=== PATIENT | male | born 1940 | race Caucasian/White ===

== ENCOUNTER 2019-02-15 02:48 | Observation (INO) ==
[2019-02-15] MEDS ORDERED: IOPAMIDOL 100 ML BOTTLE IV ONE (02:49)
[2019-02-15] MEDS ORDERED: LACTATED RINGERS 1,000 ML IV ONE (03:22)
[2019-02-15] MEDS ORDERED: ONDANSETRON 4 MG/2 ML VIAL IV ONE (03:22)
[2019-02-15] MEDS ORDERED: PANTOPRAZOLE 40 MG VIAL IV ONE ×2 (03:22→07:31)
--- NOTE | 2019-02-15 03:33 | Emergency Department Note ---
Abdominal Pain HPI - General Chief Complaint: Abdominal Pain Stated Complaint: abd pain Time Seen by Provider: 02/15/19 03:21 Source: patient Mode of arrival: ambulatory Limitations: no limitations - History of Present Illness HPI Narrative: Patient started belching yesterday evening. Then had 1 episode of emesis, thinks he vomited up some peaches that he had earlier in the evening. Proceeded to have more episodes of abdominal cramps and 1 further episode of emesis about 1:30 AM her. Decided to come in for evaluation of. states that he has a history of Crohn's and he said episodes like this before when his Crohn's was active. He did have 2 bowel movements earlier yesterday. Denies blood in his stools. He does take eliquis for a blood clot that he had in his leg. No fevers, no chills, no cough. No respiratory symptoms, status post open heart surgery. Denies chest pain. MD Complaint: abdominal pain Onset (ago): hour(s) Location: periumbilical Quality: cramping Radiation: none Migration to: no migration Improves with: nothing Associated symptoms: Reports: denies other symptoms, nausea, vomiting. Denies: diarrhea, fever, chills, constipation, dysuria - Related Data Home Medications Medication Instructions Recorded Confirmed Aspirin [Brady Chewable Aspirin] 81 mg PO DAILY 05/09/16 08/09/16 Atorvastatin [Lipitor] 10 mg PO HS 05/09/16 08/09/16 Citalopram [Celexa] 20 mg PO DAILY 05/09/16 08/09/16 Diltiazem HCl [Cartia Xt] 120 mg PO DAILY 05/09/16 08/09/16 Mesalamine [Pentasa] 2,000 mg PO BID 05/09/16 08/09/16 Methotrexate Sodium [Methotrexate] 25 mg IJ WEEKLY 05/09/16 08/09/16 Omeprazole [PriLOSEC] 20 mg PO DAILY 05/09/16 08/09/16 Primidone [Mysoline] 100 mg PO DAILY 05/09/16 08/09/16 coenzyme Q10 100 mg capsule 100 mg PO QDAY 07/04/16 08/09/16 cyanocobalamin (vitamin B-12) 100 100 mcg PO QDAY 07/04/16 08/09/16 mcg tablet folic acid 1 mg tablet 1 mg PO QDAY 07/04/16 08/09/16 grape seed extract PO QDAY 07/04/16 08/09/16 lisinopril 2.5 mg tablet 2.5 mg PO QDAY 07/04/16 08/09/16 nitroglycerin 0.4 mg sublingual 0.4 mg SUBLINGUAL Q5M PRN 07/04/16 08/09/16 tablet omega-3 fatty acids 1,000 mg 1,000 mg PO QDAY 07/04/16 08/09/16 capsule turmeric root extract PO QDAY 07/04/16 08/09/16 Apixaban [Eliquis] 5 mg PO BID 02/15/19 02/15/19 Allergies Allergy/AdvReac Type Severity Reaction Status Date / Time No Known Drug Allergies Allergy Verified 02/15/19 02:53 Review of Systems All systems ED: reviewed and negative except as stated. Constitutional: Denies: fever, chills ENT ED: Denies: ear pain, throat pain Cardiovascular: Denies: chest pain, palpitations, dyspnea on exertion Respiratory: Denies: shortness of breath, cough Gastrointestinal: Reports: abdominal pain Abdominal Pain PMH - Past Medical History Medical history: Reports: CAD (coronary artery disease), GERD, hyperlipidemia, hypertension, other (crohn's, history of Parkinson's) Surgical history ED: Reports: coronary bypass (CABG) Psychiatric history: Reports: no psych history Family history: Reports: no significant family history - Social History Smoking status: Never smoker Alcohol use: Reports: Rarely Drug use: Reports: none Physical Exam Limitations: no limitations General appearance: alert, in no apparent distress, nontoxic Head: atraumatic, normocephalic Eye: Present: normal appearance, PERRL, EOMI. Absent: conjunctival injection ENT: Present: normal exam, normal oropharynx, mucous membranes moist, TM's normal bilaterally Neck: Present: normal inspection, full ROM. Absent: tenderness, meningismus Chest: Present: normal inspection, symmetric chest wall rise Respiratory: Present: normal lung sounds bilaterally. Absent: respiratory distress, rales/crackles Cardiovascular: Present: regular rate, normal rhythm, normal heart sounds Abdominal: Present: soft, distention, tenderness, hyperactive bowel sounds. Absent: guarding, rebound, rigidity Abdominal tenderness: Present: RLQ, mild : Present: normal inspection, normal testicular lie. Absent: testicular tenderness, scrotal swelling Extremities: Present: normal inspection, full ROM. Absent: tenderness, pedal edema Back: Present: normal inspection. Absent: CVA tenderness (R), CVA tenderness (L), vertebral tenderness Neurological: Present: alert, oriented X3, CN II-XII intact, other (fine tremor of his hands). Absent: motor sensory deficit Psychiatric: Present: normal affect, normal mood Skin: Present: warm, dry, normal color Course - Reevaluation(s) Reevaluation #1: His x-rays of the abdomen are showing air-fluid levels, multiple, and along with his elevated white blood cell count and tenderness in the right lower quadrant. We will go ahead and proceed with CT scan of the abdomen and pelvis. Keep him nothing by mouth. His nausea is better at this time. He has not vomited here in the ED, but he may still very well need an NG tube. The. Sedimentation rate is not especially high, however, he is on methotrexate and he may still have a flareup of his Crohn's. Reevaluation #2: CT scan negative for appendicitis. The. Patient may have small degree of inflammation in the terminal ileum. Upright plain abdominal films concerning for bowel obstruction, however, CT not indicating that he has an acute obstr uction. At this point, we will proceed with NG-tube placement, , low-dose Solu- Medrol and keep him nothing by mouth. Initial orders written for Dr. Archiabld. The. Case discussed with Dr. Archibald Vital Signs Temperature 98.5 F 02/15/19 02:49 Pulse Rate 81 02/15/19 02:49 Respiratory Rate 20 02/15/19 02:49 Blood Pressure 156/77 02/15/19 02:49 Pulse Oximetry (%) 98 02/15/19 02:49 Temperature 98.0 F 02/15/19 04:47 Pulse Rate 82 02/15/19 07:12 Respiratory Rate 16 02/15/19 04:47 Blood Pressure 108/43 02/15/19 07:12 Pulse Oximetry (%) 91 02/15/19 07:12 Abdominal Pain - MDM Narrative Medical decision making narrative: Impression is right lower quadrant abdominal pain, history of Crohn's disease, air-fluid levels consistent with small bowel obstruction - Lab Data Lab results reviewed: Yes I reviewed the patient's lab results. Result diagrams: 02/15/19 03:30 02/15/19 03:30 Lab Results 02/15/19 02/15/19 02/15/19 Range/Units 03:30 03:30 04:45 WBC 13.3 H (4.50-11.00) K/mcL RBC 4.44 L (4.63-6.08) M/mcL Hgb 14.0 (13.7-17.5) g/dL Hct 42.9 (40.1-51.0) % MCV 96.6 (80.0-100.0) fL MCH 31.5 (26.0-34.0) pg MCHC 32.6 (31.0-36.0) g/dL RDW 15.2 H (11.5-14.5) % Plt Count 266 (140-440) K/mcL MPV 10.0 (7.4-10.4) fL Gran % 89.2 H (38.0-78.0) % Lymph % (Auto) 3.9 L (15.5-49.0) % [place] % (Auto) 6.5 (1.0-12.0) % Eos % (Auto) 0.2 (0.0-7.0) % Baso % (Auto) 0.2 (0.0-2.0) % Gran # 11.89 H (1.80-8.00) K/mcL Lymph # (Auto) 0.52 L (1.50-4.80) K/mcL [place] # (Auto) 0.86 (0.10-0.90) K/mcL Eos # (Auto) 0.03 (0.00-0.70) K/mcL Baso # (Auto) 0.03 (0.00-0.30) K/mcL ESR 22 H (0-15) mm/hr Sodium 138 (133-145) mmol/L Potassium 4.3 (3.3-5.1) mmol/L Chloride 100 (96-108) mmol/L Carbon Dioxide 23 (22-30) mmol/L Anion Gap 15.0 (8-16) BUN 16 (8-23) mg/dl Creatinine 1.3 H (0.7-1.2) mg/dl GFR Calculation 52 Glucose 130 H (70-105) mg/dL Calcium 9.6 (8.6-10.4) mg/dl Total Bilirubin 0.5 (0.0-1.0) mg/dL AST 22 (0-37) U/l ALT 25 (0-40) U/l Alkaline Phosphatase 78 (39-117) U/L Total Protein 7.5 (5.9-8.4) gm/dL Albumin 4.6 (3.2-5.2) gm/dL Globulin 2.9 (2.2-3.7) gm/dL Albumin/Globulin Ratio 1.6 (1.0-2.3) Lipase 15 (7-60) U/L Urine Color Yellow Urine Appearance Clear Urine pH 8.0 (5.0-9.0) Ur Specific [place] 1.019 (1.000-1.035) Urine Protein 30 A (NEG) mg/dL Urine Glucose (UA) Negative (NEG) mg/dL Urine Ketones Neg (NEG) mg/dL Urine Occult Blood Neg (<0.03) mg/dL Urine Nitrate Neg (NEG) Urine Bilirubin Neg (NEG) mg/dL Urine Urobilinogen Neg (NEG) mg/dL Ur Leukocyte Esterase Neg (NEG) /uL Urine RBC 18 H (0-1) /hpf Urine WBC 3 (0-4) /hpf Ur Squamous Epith Cells 0 (0-4) /hpf Urine Bacteria 0 (0) /hpf Urine Mucus Few (0) /hpf Ur Culture Indicated? No - Radiology Data Radiology results reviewed: Yes I reviewed the patient's radiology results. Disposition Pt seen by RESIDENT ADVISOR/PA only: No Clinical Impression: Abdominal pain, Small bowel obstruction, Crohn's disease Disposition: Xfer As Outpt/Obs ([facility]) Condition: Fair Referrals: Tiffanie Amado MD [Primary Care Provider] -
[2019-02-15 04:10] LABS: Basophils # (Auto) 0.03 K/mcL (0.00-0.30); Basophils % (Auto) 0.2 % (0.0-2.0); Eosinophils # (Auto) 0.03 K/mcL (0.00-0.70); Eosinophils % (Auto) 0.2 % (0.0-7.0); Granulocytes % (Auto) 89.2 % (38.0-78.0); Hematocrit 42.9 % (40.1-51.0); Lymphocytes # (Auto) 0.52 K/mcL (1.50-4.80); Lymphocytes % (Auto) 3.9 % (15.5-49.0); Mean Cell Volume 96.6 fL (80.0-100.0); Mean Corpuscular HGB Conc 32.6 g/dL (31.0-36.0); Monocytes # (Auto) 0.86 K/mcL (0.10-0.90); Monocytes % (Auto) 6.5 % (1.0-12.0); Platelet Count 266 K/mcL (140-440); RBC 4.44 M/mcL (4.63-6.08); Red Cell Distribution Width 15.2 % (11.5-14.5); WBC 13.3 K/mcL (4.50-11.00)
[2019-02-15 04:29] LABS: ALT/SGPT 25 U/l (0-40); AST/SGOT 22 U/l (0-37); Albumin 4.6 gm/dL (3.2-5.2); Albumin/Globulin Ratio 1.6 (1.0-2.3); Alkaline Phosphatase 78 U/L (39-117); Bilirubin,Total 0.5 mg/dL (0.0-1.0); Blood Urea Nitrogen 16 mg/dl (8-23); Calcium 9.6 mg/dl (8.6-10.4); Carbon Dioxide 23 mmol/L (22-30); Chloride 100 mmol/L (96-108); Globulin 2.9 gm/dL (2.2-3.7); Glomerular Filtration Rate 52; Glucose 130 mg/dL (70-105)
[2019-02-15 04:51] LABS: Erythrocyte Sedimentation Rate 22 mm/hr (0-15)
[2019-02-15] MEDS: LACTATED RINGERS 1,000 ML IV SCH ×2 (05:20→10:04)
[2019-02-15 05:27] LABS: Appearance,Urine CLEAR; Bacteria,Urine 0 /hpf (0); Bilirubin,Urine NEG (NEG); Color,Urine YELLOW; Culture Indicated,Urine NO; Glucose,Urine (UA) NEGATIVE (NEG); Ketones,Urine NEG (NEG); Leukocyte Esterase,Urine NEG /uL (NEG); Mucus,Urine FEW /hpf (0); Nitrate,Urine NEG (NEG); Protein,Urine 30 mg/dL (NEG); Specific Gravity,Urine 1.019 (1.000-1.035); Urine Blood NEG mg/dL (<0.03); Urine RBC 18 /hpf (0-1); Urine Squamous Epithelial Cell 0 /hpf (0-4); Urine WBC 3 /hpf (0-4); Urobilinogen,Urine NEG (NEG)
[2019-02-15] MEDS ORDERED: methylPREDNISolone SOD SUCC 125 MG/2 ML VIAL IV ONE (07:23)
[2019-02-15] MEDS ORDERED: ONDANSETRON 4 MG/2 ML VIAL IV PRN ×2 (07:28→13:23)
[2019-02-15] MEDS ORDERED: LIDOCAINE JEL 2% 1 TUBE 5GM TOPICAL ONE (07:51)
--- NOTE | 2019-02-15 08:53 | XRay Report ---
HISTORY: Vomiting FINDINGS: There are several air-fluid levels in borderline dilated small intestine in the mid abdomen. There Is also a small air-fluid level within a decompressed stomach and within a small hiatus hernia. Mass is identified. Patient has moderate arthritis in the right hip. There are multiple subchondral erosions in the femoral head. Above the left pubic bone there is a 1.5 cm dense calcification. This may be a bladder stone. There are multiple punctate calcifications in the prostate and multiple vascular calcifications throughout the abdomen and pelvis. A 7 mm calculus is present in the lower portion of the right kidney. Patient has multiple old compression fractures thoracic and lumbar spine. IMPRESSION: Nonspecific bowel pattern Right side kidney stone and bladder stone Interpreted and Authenticated by: Hipolito Clemente 02/15/19
--- NOTE | 2019-02-15 09:06 | Cat Scan Report ---
History: Right lower quadrant pain, Crohn's disease, air-fluid levels TECHNIQUE: The patient was imaged following intravenous but no oral contrast scanning during the portal venous phase from the diaphragm to the symphysis pubis. Delayed excretory phase images of the upper abdomen were acquired. Sagittal and coronal reformats were created. The radiation exposure was limited using dose reduction technology. FINDINGS: A small hiatus hernia is present. Densely calcified plaques are present in the coronary arteries. The heart size is normal. The liver is normal in size. There are few scattered cysts in both left and right lobes. No solid mass is present. Within the neck of the gallbladder there are numerous tiny gallstones. The gallbladder wall is not thickened or inflamed and the bile ducts are nondilated. Within the spleen there are two tiny low-attenuation1 structures measuring approximately 2 to 3 mm in size. The more anterior the to becomes isodense during the delayed phase and the second one remains hypodense. These may be a combination of small cysts and tiny hemangiomas. The overall size of the spleen is normal. The pancreas is normal without evidence of a mass or inflammation. The kidneys are normal in size and shape. There is a nonobstructing 4 x 8 mm calculus in a lower pole calyx of the right kidney. In the upper pole there is a 2 x 3 mm stone. In the left kidney there is a cortical cyst laterally in the upper third measuring 1.1 x 1.2 cm. No stone is present in the left kidney. No solid mass or hydronephrosis are present in either kidney. Layering posteriorly in the lumen of the bladder there is a dense 1 x 1.3 mm calculus. The bladder ellis not thickened or inflamed. Prostate is mildly enlarged. There are dense calcifications in the transitional zone. The right seminal vesicle is enlarged. The left side is normal. No discrete tumor is identified within the prostate. There is no periprosthetic mass or adenopathy. Moderate atherosclerotic disease is present throughout the abdomen and pelvis. The aorta is normal in caliber. There are multiple fluid filled borderline dilated loops of small intestine in the abdomen. There is a short segment of distal ileum in the right mid abdomen which has thickened ellis and and there are couple diverticula within this segment. There is low level stranding of the surrounding fat. There is a gradual transition in caliber of the small intestine at the level of the abnormal small bowel in the right mid abdomen. The terminal ileum is normal. The appendix is noninflamed. Normal amount stool is present in the colon. There is no evidence of diverticulitis. Patient has numerous compression fractures in the thoracic and lumbar spine. The most severe compression fracture is at L1. There are moderate compression fractures at T7 and T8 and mild compression fractures at L2, L3, L4 and IMPRESSION: Short segment of inflamed ileum in the right mid abdomen causing either low-grade bowel obstruction or ileus. This is probably due to active Crohn's disease. There is no evidence of perforation, fistula or abscess. Nonobstructing right side kidney stones and moderate size bladder stone Enlarged prostate and asymmetric enlargement of the right seminal vesicle. Correlation with the PSA level is recommended Interpreted and Authenticated by: Hipolito Clemente 02/15/19
--- NOTE | 2019-02-15 09:07 | XRay Report ---
HISTORY: Nasogastric tube insertion FINDINGS: Nasogastric tube has been inserted. The tip is in the antrum of stomach. The stomach is decompressed. There is contrast in both kidneys following the preceding CT scan. Thin bands of scar or discoid atelectasis in the left lung base. IMPRESSION: Well-positioned nasogastric tube in the stomach Interpreted and Authenticated by: Hipolito Clemente 02/15/19
[2019-02-15] MEDS: 0.9 % SODIUM CHLORIDE 1,000 ML IV SCH ×3 (09:47→20:13)
[2019-02-15] MEDS ORDERED: PROMETHAZINE 25 MG/ML VIAL IV PRN (13:21)
--- NOTE | 2019-02-15 13:27 | General Surg History&Physical ---
History of Present Illness Patient information: Note initiated : 02/15/19 at 1:26 pm Service Date, if different from initiated Date: [] Patient: Scooter Maria a 79 y/o M admitted on 02/15/19 for abd pain. Chief Complaint: [] HPI: Mr. Maria is a 79 year old M admitted with partial bowel obstruction. The patient has a history of Crohn's disease and intermittently has episodes of acute flare. He started having crampy abdominal pain last evening about 8 PM. This was acute in onset and was followed by 2 major episodes of nausea and vomiting of large volume liquid. He also noted increasing bloating. He had a small bowel movement on yesterday and has had this small amount of flatus. He has not had any blood in his bowels. He has crampy pain in the right lower quadrant. CT of abdomen and pelvis suggests short segment partial small bowel obstruction with dilated loops of bowel. Patient is admitted for nasogastric decompression and will have small bowel follow-through tomorrow. Review of Systems All systems PM: reviewed and no additional remarkable complaints except as stated (negative except as noted in history of present illness and below) - Constitutional frequent falls, malaise, weight gain - Gastrointestinal abdominal pain, belching, bloating, change in bowel habits, cramping, nausea, vomiting - Musculoskeletal abnormal gait, arthralgias, back pain - Neurological abnormal gait, disequilibrium, tremor(s), weakness Past History Past medical history: History of coronary artery disease status post coronary artery bypass graft 4 in 2014 History of Crohn's disease. Anxiety with depression. Peripheral neuropathy. Parkinson's disease Past surgical history: Coronary artery bypass graft 4 Past family history: Positive for lung cancer. Melanoma. Stroke Past social history: Never smoker. Denies alcohol use. Denies drug use Medications and Allergies Home Medications Medication Instructions Recorded Confirmed Type Aspirin [Brady Chewable Aspirin] 81 mg PO DAILY 05/09/16 02/15/19 History Citalopram [Celexa] 20 mg PO DAILY 05/09/16 02/15/19 History Diltiazem HCl [Cartia Xt] 120 mg PO DAILY 05/09/16 02/15/19 History Methotrexate Sodium [Methotrexate] 25 mg IJ WEEKLY 05/09/16 02/15/19 History Omeprazole [PriLOSEC] 20 mg PO DAILY 05/09/16 02/15/19 History Primidone [Mysoline] 50 mg PO BID 05/09/16 02/15/19 History coenzyme Q10 100 mg capsule 100 mg PO QDAY 07/04/16 02/15/19 History cyanocobalamin (vitamin B-12) 100 100 mcg PO QDAY 07/04/16 02/15/19 History mcg tablet folic acid 1 mg tablet 1 mg PO QDAY 07/04/16 02/15/19 History grape seed extract 1 tab PO QDAY 07/04/16 02/15/19 History nitroglycerin 0.4 mg sublingual 0.4 mg SUBLINGUAL Q5M PRN 07/04/16 02/15/19 History tablet omega-3 fatty acids 1,000 mg 1,000 mg PO QDAY 07/04/16 02/15/19 History capsule Apixaban [Eliquis] 5 mg PO BID 02/15/19 02/15/19 History Carbidopa/Levodopa 1 each PO TID 02/15/19 02/15/19 History [Carbidopa-Levodopa 25-100 Tab] Pramipexole [Mirapex] 0.125 mg PO TID 02/15/19 02/15/19 History traZODone HCL [Trazodone HCl] 50 mg PO HS 02/15/19 02/15/19 History Allergies Allergy/AdvReac Type Severity Reaction Status Date / Time No Known Drug Allergies Allergy Verified 02/15/19 02:53 Exam Temp Pulse Resp BP Pulse Ox 98.3 F 87 18 139/75 92 02/15/19 11:43 02/15/19 11:43 02/15/19 11:43 02/15/19 11:43 02/15/19 11:43 - General physical appearance well developed, well nourished, no distress - Eyes PERRL, normal ocular movement - ENT normal pinna, normal nares, normal mucosa, no hearing loss, no congestion - Head Head exam IM: Present: atraumatic, normal inspection, normocephalic - Neck no masses, no bruits, trachea midline, no lymphadenopathy, no venous distension - Cardiovascular Cardiovascular exam IM: Present: normal rate and rhythm, RRR, +S1, +S2. Absent: JVD, tachycardia - Respiratory normal expansion, normal respiratory effort, clear to auscultation - Abdomen Abdomen: Present: soft, non tender, bowel sounds, distended (mild distention; no tenderness noted; normal bowel sounds) Hernia: Present: none - Genitourinary Present: normal penis with no external lesions - Integumentary Present: no rash, no growths, no abnormal pigmentation - Neurologic Present: normal coordination, normal sensation, other (constant resting tremor which is exacerbated with activity) - Musculoskeletal Present: normal posture, other (unsteady gait due to Parkinson's disease) - Psychiatric Present: oriented to time, oriented to person, oriented to place, speech is normal, memory intact Assessment and Plan (1) Partial obstruction of small intestine Patient will have nasogastric decompression today. Small bowel follow-through will be performed in the morning. Further treatment will be based on the results of the small bowel follow Status: Acute (2) Crohns disease Solu-Medrol 62 mg IV every 12 hours Status: Chronic (3) Anxiety and depression Resume home medication when patient is able to take oral intake Status: Chronic (4) Coronary artery disease Clinically inactive and asymptomatic at this time Status: Chronic (5) Peripheral neuropathy Status: Chronic Comment: feet
[2019-02-15] MEDS: PANTOPRAZOLE 40 MG VIAL IV SCH (17:16)
[2019-02-15] MEDS ORDERED: ACETAMINOPHEN 1,000 MG/100 ML BOTTLE IV PRN (19:57)
[2019-02-15] MEDS: methylPREDNISolone SOD SUCC 125 MG/2 ML VIAL IV SCH (20:13)
[2019-02-16] MEDS: 0.9 % SODIUM CHLORIDE 1,000 ML IV SCH ×4 (05:49→19:14)
[2019-02-16] MEDS: PANTOPRAZOLE 40 MG VIAL IV SCH ×2 (07:23→17:21)
[2019-02-16] MEDS: methylPREDNISolone SOD SUCC 125 MG/2 ML VIAL IV SCH ×2 (09:00→20:31)
--- NOTE | 2019-02-16 10:23 | XRay Report ---
HISTORY: Small bowel obstruction FINDINGS: The purchasing manager film of the abdomen shows normal caliber large and small intestine. The dilatation of small intestine seen on 02/15/19 has resolved. The patient was given dilute Gastrografin contrast through the nasogastric tube. Serial images were acquired following the barium through the stomach and small intestine into the colon. The barium reached the ascending colon within 30 minutes. The duodenum, jejunum and ileum have normal motility and a normal mucosal pattern. There is no evidence of obstruction or mass or inflammation. The questionable narrowed segment of ileum in the right side of the pelvis seen on the recent CT scan is not identified on today's study. The terminal ileum is normal. IMPRESSION: Normal exam Interpreted and Authenticated by: Hipolito Clemente 02/16/19
--- NOTE | 2019-02-16 13:51 | General Surgery Progress Note ---
Subjective Patient reports: feels better, pain is less, flatus, bowel movement, diarrhea, afebrile Narrative: Note initiated : 02/16/19 at 1:49 pm Service Date, if different from initiated Date: [] Patient: Scooter Maria 79 y/o M admitted on 02/15/19 for abd pain. Chief Complaint: [Patient feels much better. He had a small bowel follow- through this morning which showed transit to the colon in 30 minutes. He's had 2 large bowel movements since that time. He denies nausea and his pain has resolved.] Objective Temp Pulse Resp BP Pulse Ox 97.5 F 82 18 124/67 93 02/16/19 08:00 02/16/19 08:00 02/16/19 08:00 02/16/19 08:00 02/16/19 08:00 - Additional Data Intake & Output - Last 24 hours: Intake & Output 02/14/19 02/15/19 02/16/19 02/17/19 05:59 05:59 05:59 05:59 Intake Total 1000 2160 1000 Output Total 2040 975 Balance 1000 120 25 Weight 185 lb 185 lb 11.2 oz - General physical appearance well developed, well nourished, no distress - Eyes PERRL, normal ocular movement - ENT normal pinna, normal nares, normal mucosa, no hearing loss, no congestion - Neck no masses, no bruits, trachea midline, no lymphadenopathy, no venous distension - Respiratory normal expansion, normal respiratory effort, clear to auscultation - Cardiovascular Cardiovascular exam: Present: normal rate and rhythm, RRR, +S1, +S2. Absent: JVD, tachycardia - Abdomen soft, non tender, distended (abdomen is soft and nondistended; he has good active bowel sounds) - Integumentary no rash, no growths, no abnormal pigmentation - Neurologic normal coordination, normal sensation - Musculoskeletal normal gait, normal posture - Psychiatric oriented to time, oriented to person, oriented to place, speech is normal, memory intact - Labs 02/15/19 03:30 02/15/19 03:30 Assessment and Plan (1) Partial obstruction of small intestine Status: Acute Assessment and plan: Discontinue nasogastric tube. Full liquid diet. 2 view abdominal x-rays in the morning Current Visit: Yes (2) Crohns disease Status: Chronic Current Visit: Yes (3) Anxiety and depression Status: Chronic Current Visit: No (4) Coronary artery disease Status: Chronic Current Visit: No (5) Peripheral neuropathy Problem details: feet Status: Chronic Current Visit: No - Time Spent With Patient Total time spent is greater than 50% in coordination of care (as documented) at patient's floor/unit and/or counseling patient:
[2019-02-16] MEDS: PRAMIPEXOLE 0.25 MG TABLET PO SCH ×2 (15:11→20:31)
[2019-02-16] MEDS: CARBIDOPA/LEVODOPA 25/100 TABLET PO SCH ×2 (15:12→20:31)
[2019-02-16] MEDS: PRIMIDONE 50 MG TABLET PO SCH (20:31)
[2019-02-16] MEDS: APIXABAN 5 MG TABLET PO SCH (20:31)
[2019-02-16] MEDS ORDERED: traZODone HCL 50 MG TABLET PO SCH (21:00)
[2019-02-17] MEDS: 0.9 % SODIUM CHLORIDE 1,000 ML IV SCH ×3 (00:15→10:08)
[2019-02-17] MEDS: PANTOPRAZOLE 40 MG VIAL IV SCH (06:48)
--- NOTE | 2019-02-17 08:49 | XRay Report ---
CLINICAL INFORMATION: Small bowel obstruction - follow up COMPARISON: Small bowel follow-through: 02/16/2019. FINDINGS: The stool gas pattern is unremarkable. Small amount of residual barium is seen within the colon from small bowel follow-through exam one day prior. There is no free air, soft tissue mass, organomegaly or pathologic calcification. Patchy irregular sclerosis and cyst formation in the right femoral head may represent old AVN or atypical degeneration. It demonstrates long-term radiographic stability (unchanged from 03/01/2009 supine abdomen plain film. IMPRESSION: Normal abdomen Interpreted and Authenticated by: Maxwell Mckeon 02/17/19
[2019-02-17] MEDS ORDERED: CITALOPRAM 20 MG TABLET PO SCH (09:00)
[2019-02-17] MEDS ORDERED: DILTIAZEM 120 MG CAP.XL.24H PO SCH (09:00)
[2019-02-17] MEDS: PRAMIPEXOLE 0.25 MG TABLET PO SCH (09:06)
[2019-02-17] MEDS: methylPREDNISolone SOD SUCC 125 MG/2 ML VIAL IV SCH (09:07)
[2019-02-17] MEDS: APIXABAN 5 MG TABLET PO SCH (09:07)
[2019-02-17] MEDS: PRIMIDONE 50 MG TABLET PO SCH (09:07)
[2019-02-17] MEDS: CARBIDOPA/LEVODOPA 25/100 TABLET PO SCH (09:44)
--- NOTE | 2019-02-17 13:19 | Discharge Summary ---
Providers - Providers Patient information: Note initiated : 02/17/19 at 1:16 pm Service Date, if different from initiated Date: [] Patient: Scooter Maria 79 y/o M admitted on 02/15/19 for abd pain. Chief Complaint: [] Date of admission: 02/15/19 Discharge date: 02/17/19 Attending physician: José Miguel Archibald Hospitalization Hospital Course: 79-year-old male admitted with history of crampy abdominal pain, nausea and vomiting. He had clinical evidence of small bowel obstruction. He carries a diagnosis of Crohn's disease and has had intermittent flareup. CT of the abdomen suggested short segment stenosis of the terminal ileum with inflammation compatible with ileitis. The patient was admitted and started on decompression. A small bowel follow-through was done. He was given IV Solu- Medrol. Small bowel follow-through showed transit through the small bowel and colon. Patient has had 6 bowel movements since yesterday. Abdominal x-rays this morning is totally normal without any dilated bowel. He has tolerated full liquids and is stable for discharge home. He is advised to follow-up with his GI physician and his primary care physician. He is to resume all of his home medications. Discharge diagnosis: partial small bowel obstruction Secondary discharge diagnosis: History of Crohn's disease. Coronary artery disease, stable. Anxiety with depression, stable. Parkinson's disease, stable Reason for admission: abdominal pain, nausea and vomiting Procedures: None Pertinent studies/significant findings: CT of abdomen and pelvis with contrast Single contrast small bowel follow Complications: None Exam Temp Pulse Resp BP Pulse Ox 97.5 F 67 18 106/58 93 02/17/19 06:43 02/17/19 06:43 02/17/19 08:00 02/17/19 06:43 02/17/19 06:43 - General physical appearance well developed, well nourished, no distress - Eyes PERRL, normal ocular movement - ENT normal pinna, normal nares, normal mucosa, no hearing loss, no congestion - Head Head exam IM: Present: atraumatic, normocephalic - Neck no masses, no bruits, trachea midline, no lymphadenopathy, no venous distension - Cardiovascular Cardiovascular exam IM: Present: normal rate and rhythm - Respiratory normal expansion, normal respiratory effort, clear to auscultation - Abdomen Abdomen: Present: soft, non tender, bowel sounds, distended (benign abdomen without distention; no tenderness or guarding; good active bowel sounds) Hernia: Present: none - Genitourinary Present: normal penis with no external lesions - Integumentary Present: no rash, no growths, no abnormal pigmentation - Neurologic Present: normal coordination, normal sensation, other (resting and intention t remor compatible with his Parkinson's disease) - Musculoskeletal Present: normal gait, normal posture - Psychiatric Present: oriented to time, oriented to person, oriented to place, speech is normal, memory intact Discharge Plan - Patient/Caregiver Discharge Instructions Activity: increase activity as tolerated Diet: Full Liquid (full liquid diet and advance as tolerated) Additional Instructions: Continue his pre-hospitalization medications. Follow-up with Dr. KARINA Amado and his product line manager as needed - Follow up Plan Follow up with: Karina Amado MD [Primary Care Provider] - Disposition: Home, Self-Care Prognosis: Good Rehab Potential: Good I certify that the patient requires SNF services.: No Overall status at discharge: patient is back to baseline Pending Studies Resuscitation Status Full Code Diet Full Liquid Diet Start Sun Feb 16 1345 Apixaban (Eliquis) 5 mg PO BID [facility] Last Admin: 02/17/19 09:07 Dose: 5 mg Documented by: JOSE ALFREDO Admin: 02/16/19 20:31 Dose: 5 mg Documented by: DAI Carbidopa/Levodopa (Sinemet 25/100) 1 tab PO TID [facility] Last Admin: 02/17/19 09:44 Dose: 1 tab Documented by: JOSE ALFREDO Admin: 02/16/19 20:31 Dose: 1 tab Documented by: Admin: 02/16/19 15:12 Dose: 1 tab Documented by: [email or web address] Citalopram Hydrobromide (Celexa) 20 mg PO DAILY [facility] Last Admin: 02/17/19 09:07 Dose: 20 mg Documented by: JOSE ALFREDO Diltiazem HCl (Cardizem Cd) 120 mg PO DAILY [facility] Last Admin: 02/17/19 09:07 Dose: 120 mg Documented by: JOSE ALFREDO Sodium Chloride (Sodium Chloride 0.9%) 1,000 mls @ 100 mls/hr IV .Q10H [facility] Last Admin: 02/17/19 10:08 Dose: Not Given Documented by: JOSE ALFREDO Admin: 02/17/19 05:25 Dose: 100 mls/hr Documented by: Infusion: 02/17/19 05:14 Dose: 100 mls/hr Documented by: Admin: 02/17/19 00:15 Dose: Not Given Documented by: Admin: 02/16/19 19:14 Dose: 100 mls/hr Documented by: Infusion: 02/16/19 17:23 Dose: 100 mls/hr Documented by: Admin: 02/16/19 13:30 Dose: Not Given Documented by: Admin: 02/16/19 07:23 Dose: 100 mls/hr Documented by: Infusion: 02/16/19 06:13 Dose: 100 mls/hr Documented by: Admin: 02/16/19 05:49 Dose: Not Given Documented by: Admin: 02/15/19 20:13 Dose: 100 mls/hr Documented by: Infusion: 02/15/19 19:47 Dose: 100 mls/hr Documented by: Admin: 02/15/19 18:41 Dose: Not Given Documented by: [email or web address] Admin: 02/15/19 09:47 Dose: 100 mls/hr Documented by: [email or web address] Acetaminophen (Ofirmev) 1,000 mg in 100 mls @ 200 mls/hr IV Q6HP PRN; Protocol PRN Reason: Pain Last Infusion: 02/15/19 21:06 Dose: 0 mls/hr Documented by: Admin: 02/15/19 20:13 Dose: 200 mls/hr Documented by: DAI Methylprednisolone Sodium Succinate (Solu-Medrol) 62.5 mg IV Q12 [facility] Last Admin: 02/17/19 09:07 Dose: 62.5 mg Documented by: JOSE ALFREDO Admin: 02/16/19 20:31 Dose: 62.5 mg Documented by: Admin: 02/16/19 09:00 Dose: 62.5 mg Documented by: Admin: 02/15/19 20:13 Dose: 62.5 mg Documented by: DAI Pantoprazole Sodium (Protonix) 40 mg IV BIDAC [facility] Last Admin: 02/17/19 06:48 Dose: 40 mg Documented by: JOSE ALFREDO Admin: 02/16/19 17:21 Dose: 40 mg Documented by: [id number] Admin: 02/16/19 07:23 Dose: 40 mg Documented by: [email or web address] Admin: 02/15/19 17:16 Dose: 40 mg Documented by: [email or web address] Pramipexole Dihydrochloride (Mirapex) 0.125 mg PO TID [facility] Last Admin: 02/17/19 09:06 Dose: 0.125 mg Documented by: JOSE ALFREDO Admin: 02/16/19 20:31 Dose: 0.125 mg Documented by: Admin: 02/16/19 15:11 Dose: 0.125 mg Documented by: [email or web address] Primidone (Mysoline) 50 mg PO BID [facility] Last Admin: 02/17/19 09:07 Dose: 50 mg Documented by: JOSE ALFREDO Admin: 02/16/19 20:31 Dose: 50 mg Documented by: DAI Trazodone HCl (Desyrel) 50 mg PO HS [facility] Last Admin: 02/16/19 20:31 Dose: 50 mg Documented by: DAI Shift Summary 02/17/19 03:47 Shift Summary by Jackie Ruth A&O x4, calm and cooperative with cares. Has slept/rested for majority of shift. Up with SBA - hx of parkinsons so shaky/tremors but steady on feet - just needs minimal help managing lines. 20G IV in RAC infusing NS at 100ml/hr. No complaints of pain. Voiding per urinal. 2 BMs this shift - loose. No complaints of nausea/vomiting - tolerating full liquid diet well. VSS on RA. Receiving scheduled solu-medrol. No PRN medication given. Plan is to D/C home today. Will update at bedside. Initialized on 02/17/19 03:47 - END OF NOTE
== END 2019-02-17 14:09 | disposition home or self-care (01) ==
LOC: MEDSUR 02:48 → ED 02:48 → MEDSUR 08:40
PROVIDERS: ADMIT Family Medicine Adult Medicine; ATTEND Family Medicine Adult Medicine

== ENCOUNTER 2019-11-27 14:47 | Inpatient (IN) ==
[2019-11-27] MEDS ORDERED: ONDANSETRON 4 MG/2 ML VIAL IV ONE ×2 (15:16→16:46)
[2019-11-27] MEDS ORDERED: 0.9 % SODIUM CHLORIDE 1,000 ML IV ONE (15:16)
--- NOTE | 2019-11-27 15:25 | Emergency Department Note ---
Nausea/Vomiting/Diarrhea HPI General Chief complaint: Nausea/Vomiting/Diarrhea Stated complaint: Nausea and vomiting Time Seen by Provider: 11/27/19 15:09 Source: patient Mode of arrival: ambulatory Limitations: no limitations History of Present Illness HPI Narrative: Narrative: 79-year-old male patient presents to the emergency department with chief complaint of sudden onset nausea and vomiting. Patient tells me the symptoms started around 0200 this morning. He denies ingesting any foul or suspicious foods prior to symptom onset. In fact, his who accompanies him today, mentions that "we ate the same things". Patient admits to vomiting too numerous to count. Patient does have a history of small bowel obstruction in the past. He does complain of mild abdominal aching. He denies diarrhea or constipation. He denies hematemesis, hematochezia, or hematuria. He denies any known exposure to the coronavirus. ROS: Denies systemic illness, fever, sweats, chills. Denies headaches, tinnitus, or vision changes. Admits to mild runny nose. Denies sinus congestion or cough. Denies shortness of breath. Denies retrosternal chest pain or palpitations. Denies abdominal pain, nausea, vomiting, or diarrhea. Denies dysuria, urinary frequency, or urinary urgency. Admits to generalized weakness and tremor associated with his Parkinson's. Related Data Home Medications Medication Instructions Recorded Confirmed aspirin 81 mg PO DAILY 05/09/16 11/27/19 citalopram 20 mg PO DAILY 05/09/16 11/27/19 diltiazem HCl 120 mg PO DAILY 05/09/16 11/27/19 methotrexate sodium 25 mg IJ WEEKLY 05/09/16 11/27/19 omeprazole 20 mg PO DAILY 05/09/16 11/27/19 primidone 50 mg PO BID 05/09/16 11/27/19 coenzyme Q10 100 mg capsule 100 mg PO QDAY 07/04/16 11/27/19 cyanocobalamin (vitamin B-12) 100 100 mcg PO QDAY 07/04/16 11/27/19 mcg tablet folic acid 1 mg tablet 1 mg PO QDAY 07/04/16 11/27/19 grape seed extract 1 tab PO QDAY 07/04/16 11/27/19 nitroglycerin 0.4 mg sublingual 0.4 mg SUBLINGUAL Q5M PRN 07/04/16 11/27/19 tablet omega-3 fatty acids 1,000 mg 1,000 mg PO QDAY 07/04/16 11/27/19 capsule apixaban 5 mg PO BID 02/15/19 11/27/19 carbidopa-levodopa 1 each PO TID 02/15/19 11/27/19 pramipexole 0.125 mg PO TID 02/15/19 11/27/19 trazodone 50 mg PO HS 02/15/19 11/27/19 Allergies Allergy/AdvReac Type Severity Reaction Status Date / Time No Known Drug Allergies Allergy Verified 02/15/19 02:53 Review of Systems ROS ROS Narrative: Narrative: All systems ED: reviewed and negative except as stated. PFS Narrative Patient History Narrative: Narrative: Medical/Surgical/Family History All Active Problems (Updated 11/27/19 @ 18:10 by Alex Pizano PA-C) Parkinsons disease (Acute) Thoracic back pain (Acute) Strain of lumbar region (Acute) Groin strain (Acute) Abdominal pain (Acute) Small bowel obstruction (Acute) Partial obstruction of small intestine (Acute) Cold intolerance (Chronic) Intention tremor (Chronic) Peripheral neuropathy (Chronic) Insomnia, unspecified (Chronic) Anxiety and depression (Chronic) Fasting hyperglycemia (Chronic) Hypercholesterolemia (Chronic) Coronary artery disease (Chronic) Crohns disease (Chronic) Urinary frequency (Chronic) Hematuria (Chronic) Dyspnea (Acute) Fall (on)(from) incline, initial encounter (Acute) Abrasion (Acute) Medical History (Updated 11/27/19 @ 18:10 by Alex Pizano PA-C) Abrasion (Acute) Anxiety and depression (Chronic) Cold intolerance (Chronic) Coronary artery disease (Chronic) Crohns disease (Chronic) Dyspnea (Acute) Fall (on)(from) incline, initial encounter (Acute) Fasting hyperglycemia (Chronic) Hematuria (Chronic) Hypercholesterolemia (Chronic) Insomnia, unspecified (Chronic) Intention tremor (Chronic) Parkinsons disease (Acute) Peripheral neuropathy (Chronic) feet Urinary frequency (Chronic) Surgical History History of coronary artery bypass graft (Chronic) Family History Mother Cancer Father Lung cancer Brother Stroke Sister Melanoma Other Kidney stone Social History Smoking Status: Never smoker Alcohol Intake Frequency: does not drink Substance Use: does not use Exam Narrative Narrative: Narrative: General Limitations: no limitations General appearance: Present other (Well-developed, well-nourished, 79-year-old male patient laying semirecumbent on the emergency room gurney appears to not feel well. He is in no acute respiratory distress. He is afebrile with normal vital signs.) Head Head: Present normocephalic Eye Eye: Present normal appearance, PERRL and EOMI; Absent scleral icterus and conjunctival injection ENT ENT: Present normal oropharynx and mucous membranes moist Neck Neck: Present trachea midline; Absent lymphadenopathy and thyromegaly Chest Chest: Present symmetric chest wall rise Respiratory Respiratory: Present normal lung sounds bilaterally; Absent respiratory distress, wheezes, stridor, accessory muscle use and prolonged expiratory phase Cardiovascular Cardiovascular: Present regular rate and normal rhythm; Absent systolic murmur and diastolic murmur Adbominal Abdominal: Present soft and tenderness; Absent distention, guarding, rebound, rigidity, organomegaly and mass Expanded Abdominal Abdominal Tenderness: Present diffuse and mild Extremities Extremities: Present normal inspection, full ROM and normal capillary refill; Absent pedal edema Neurological Neurological: Present alert and oriented X3 Psychiatric Psychiatric: Present normal affect and normal mood Skin Skin: Present warm (WNL), dry and normal color Course Course Course Narrative: Differential diagnosis of nausea and vomiting in the adult patient includes the following: Acute gastroenteritis, vestibular neuritis, gastroparesis, GERD, cyclic vomiting syndrome, gastric outlet obstruction, eosinophilic gastroenteritis, and chronic idiopathic intestinal pseudoob struction. Patient does have mild pain on abdominal exam. This, coupled with a history of small bowel obstruction, warrants further investigation. I am going to order a 2 view abdominal x-ray series looking for evidence of obstruction. We will treat the patient's nausea with 4 mg of Zofran IVP. I will provide him normal saline 1000 mL as a bolus. Reevaluation(s) Reevaluation #1: Review the patient's diagnostics show the following: CBC WBC 12.8, all others within normal limits. CMP CO2 21, glucose 120, all others in normal limits. Lactic acid pending. Urinalysis pending. Abdominal x-ray series showing a mildly dilated gas-filled small bowel with the appearance consistent with recurrent small bowel obstruction. There is also 17 mm bladder stone noted. After reviewing all the data I discussed these findings the patient. He has recurrent small bowel obstruction. With this in mind, I reached out to our general surgeon (Dr. Archibald) and discussed the case with him. Time: 17:32 Reevaluation #2: At this time Dr. Archibald reviewed the patient's radiographs and then requested NG tube be placed and the patient. He did mention the patient n eeds admission and requested I put some holding orders in for the patient. He recommended IV fluids and something for nausea. He said he would follow patient closely tomorrow morning. Knowing this, I discussed the treatment plan with the patient who verbalized understanding. Patient is going to be admitted to our facility under the care of . I will place holding orders as mentioned. All further treatment decisions, modalities, and ultimate patient disposition be carried out by . Vital Signs Vital signs: Vital Signs Temperature 99 F 11/27/19 14:49 Pulse Rate 84 11/27/19 14:49 Respiratory Rate 12 11/27/19 14:49 Blood Pressure 155/69 11/27/19 14:49 Pulse Oximetry (%) 98 11/27/19 14:49 Temperature 99 F 11/27/19 14:49 Pulse Rate 87 11/27/19 19:01 Respiratory Rate 12 11/27/19 14:49 Blood Pressure 131/67 11/27/19 19:01 Pulse Oximetry (%) 95 11/27/19 19:01 [facility] MDM Narrative Medical decision making narrative: Narrative: Lab Data Result diagrams: 11/27/19 16:01 11/27/19 16:01 Labs: Lab Results 11/27/19 11/27/19 11/27/19 Range/Units 16:01 16:01 16:23 WBC 12.8 H (4.5-11.0) K/mcL RBC 4.70 (4.50-5.90) M/mcL Hgb 14.6 (13.5-16.5) g/dL Hct 44.3 (41.0-55.0) % MCV 94.3 (80.0-100.0) fL MCH 31.1 (26.0-34.0) pg MCHC 33.0 (31.0-36.0) g/dL RDW 14.5 (11.5-14.5) % Plt Count 220 (140-440) K/mcL MPV 9.9 (7.4-10.4) fL Neut % (Auto) 89.3 H (38.0-78.0) % Lymph % (Auto) 5.4 L (15.0-49.0) % [place] % (Auto) 5.2 (1.0-12.0) % Eos % (Auto) 0 (0.0-7.0) % Baso % (Auto) 0.1 (0.0-2.0) % Lymph # (Auto) 0.69 L (1.50-4.80) K/mcL [place] # (Auto) 0.67 (0.10-0.90) K/mcL Eos # (Auto) 0 (0.00-0.70) K/mcL Baso # (Auto) 0.01 (0.00-0.20) K/mcL Absolute Neutrophils 11.46 H (1.80-8.00) K/mcL VBG Lactic Acid 1.8 (0.5-2.0) mmol/L Sodium 141 (133-145) mmol/L Potassium 4.1 (3.3-5.1) mmol/L Chloride 104 (96-108) mmol/L Carbon Dioxide 21 L (22-30) mmol/L Anion Gap 16.0 (8.0-16.0) BUN 15 (8-23) mg/dL Creatinine 1.1 (0.7-1.2) mg/dL GFR Calculation 64 Glucose 120 H (70-105) mg/dL Calcium 9.4 (8.6-10.4) mg/dL Total Bilirubin 0.6 (0.1-1.0) mg/dL AST 21 (<40) U/L ALT 20 (<40) U/L Alkaline Phosphatase 82 (39-117) U/L Total Protein 7.1 (5.9-8.4) gm/dL Albumin 4.3 (3.2-5.2) gm/dL Globulin 2.8 (2.2-3.7) gm/dL Albumin/Globulin Ratio 1.5 (1.0-2.3) Urine Color Urine Appearance (Clear) Urine pH (5.0-9.0) Ur Specific [place] (1.000-1.035) Urine Protein (Negative) mg/dL Urine Glucose (UA) (Negative) mg/dL Urine Ketones (Negative) mg/dL Urine Occult Blood (Negative) mg/dL Urine Nitrate (Negative) Urine Bilirubin (Negative) mg/dL Urine Urobilinogen mg/dL Ur Leukocyte Esterase (Negative) /ug Urine RBC (0-1) /hpf Urine WBC (0-4) /hpf Ur Squamous Epith Cells (0-4) /hpf Urine Bacteria (0) /hpf Urine Mucus (None) /hpf Ur Culture Indicated? 11/27/19 Range/Units 16:57 WBC (4.5-11.0) K/mcL RBC (4.50-5.90) M/mcL Hgb (13.5-16.5) g/dL Hct (41.0-55.0) % MCV (80.0-100.0) fL MCH (26.0-34.0) pg MCHC (31.0-36.0) g/dL RDW (11.5-14.5) % Plt Count (140-440) K/mcL MPV (7.4-10.4) fL Neut % (Auto) (38.0-78.0) % Lymph % (Auto) (15.0-49.0) % [place] % (Auto) (1.0-12.0) % Eos % (Auto) (0.0-7.0) % Baso % (Auto) (0.0-2.0) % Lymph # (Auto) (1.50-4.80) K/mcL [place] # (Auto) (0.10-0.90) K/mcL Eos # (Auto) (0.00-0.70) K/mcL Baso # (Auto) (0.00-0.20) K/mcL Absolute Neutrophils (1.80-8.00) K/mcL VBG Lactic Acid (0.5-2.0) mmol/L Sodium (133-145) mmol/L Potassium (3.3-5.1) mmol/L Chloride (96-108) mmol/L Carbon Dioxide (22-30) mmol/L Anion Gap (8.0-16.0) BUN (8-23) mg/dL Creatinine (0.7-1.2) mg/dL GFR Calculation Glucose (70-105) mg/dL Calcium (8.6-10.4) mg/dL Total Bilirubin (0.1-1.0) mg/dL AST (<40) U/L ALT (<40) U/L Alkaline Phosphatase (39-117) U/L Total Protein (5.9-8.4) gm/dL Albumin (3.2-5.2) gm/dL Globulin (2.2-3.7) gm/dL Albumin/Globulin Ratio (1.0-2.3) Urine Color Yellow Urine Appearance Clear (Clear) Urine pH 7.0 (5.0-9.0) Ur Specific [place] 1.021 (1.000-1.035) Urine Protein 30 A (Negative) mg/dL Urine Glucose (UA) Negative (Negative) mg/dL Urine Ketones 5 A (Negative) mg/dL Urine Occult Blood Negative (Negative) mg/dL Urine Nitrate Negative (Negative) Urine Bilirubin Negative (Negative) mg/dL Urine Urobilinogen Negative mg/dL Ur Leukocyte Esterase Negative (Negative) /ug Urine RBC 0 (0-1) /hpf Urine WBC 1 (0-4) /hpf Ur Squamous Epith Cells 0 (0-4) /hpf Urine Bacteria None (0) /hpf Urine Mucus Mod A (None) /hpf Ur Culture Indicated? No Radiology Data Radiology results reviewed: Yes I reviewed the patient's radiology results. Radiology results narrative: Ordering Physician: Alex Pizano PA-C Date of Service: 11/27/19 Procedure(s): XR abdomen 2V Accession Number(s): [id number] INDICATION: N/V, moderate Abd pain. Hx of SBO. TECHNIQUE: Supine and upright abdomen. COMPARISON: Previous plain film examinations dated 02/17/2019, 02/16/2019, 02/15/2019. Previous CT scan dated 02/15/2019 FINDINGS:Abnormal bowel gas pattern. There is mildly prominent gas-filled small bowel with air-fluid levels. Small bowel measures approximately 3.5 cm in maximum cross-sectional diameter. No pneumoperitoneum. No biliary or portal venous gas. No pneumatosis. There is a 17 mm calcification in the pelvis. This was present previously although its orientation has changed. This is consistent with a bladder stone bladder stone. IMPRESSION: 1. Mildly dilated gas-filled small bowel. Appearance consistent with recurrent small bowel obstruction 2. 17 mm bladder stone Interpreted and Authenticated by: Maxwell Chavis 11/27/19 Discharge Plan Patient/Caregiver Discharge Instructions Pt seen by STRADDLE BUG/PA only: Yes Clinical Impression: Small bowel obstruction Patient Disposition: Xfer As Outpt/Obs ([facility]) Condition: Good Follow up with: Tiffanie Amado MD [Primary Care Provider] - Prescriptions: No Action nitroglycerin [Nitrostat] 0.4 mg tablet, sublingual 0.4 mg SUBLINGUAL Q5M PRN (Reason: Chest Pain) RF: 0 omega-3 fatty acids [Fish Oil Concentrate] 1,000 mg capsule 1,000 mg PO QDAY RF: 0 grape seed extract 1 tab PO QDAY RF: 0 coenzyme Q10 100 mg capsule 100 mg PO QDAY RF: 0 cyanocobalamin (vitamin B-12) 100 mcg tablet 100 mcg PO QDAY RF: 0 folic acid 1 mg tablet 1 mg PO QDAY RF: 0 primidone 50 MG tablet 50 mg PO BID RF: 0 methotrexate sodium 25 MG/ML solution 25 mg IJ WEEKLY RF: 0 citalopram 20 MG tablet 20 mg PO DAILY RF: 0 omeprazole 20 MG capsule 20 mg PO DAILY RF: 0 aspirin 81 MG tablet,chewable 81 mg PO DAILY RF: 0 diltiazem HCl 120 MG capsule,extended release 24hr 120 mg PO DAILY RF: 0 apixaban 5 MG tablet 5 mg PO BID RF: 0 trazodone 50 MG tablet 50 mg PO HS RF: 0 pramipexole 0.25 MG tablet 0.125 mg PO TID RF: 0 carbidopa-levodopa 1 EACH tablet 1 each PO TID RF: 0
--- NOTE | 2019-11-27 15:54 | XRay Report ---
INDICATION: N/V, moderate Abd pain. Hx of SBO. TECHNIQUE: Supine and upright abdomen. COMPARISON: Previous plain film examinations dated 02/17/2019, 02/16/2019, 02/15/2019. Previous CT scan dated 02/15/2019 FINDINGS:Abnormal bowel gas pattern. There is mildly prominent gas-filled small bowel with air-fluid levels. Small bowel measures approximately 3.5 cm in maximum cross-sectional diameter. No pneumoperitoneum. No biliary or portal venous gas. No pneumatosis. There is a 17 mm calcification in the pelvis. This was present previously although its orientation has changed. This is consistent with a bladder stone bladder stone. IMPRESSION: 1. Mildly dilated gas-filled small bowel. Appearance consistent with recurrent small bowel obstruction 2. 17 mm bladder stone Interpreted and Authenticated by: Maxwell Chavis 11/27/19
[2019-11-27 16:17] LABS: Basophils # (Auto) 0.01 K/mcL (0.00-0.20); Basophils % (Auto) 0.1 % (0.0-2.0); Eosinophils # (Auto) 0 K/mcL (0.00-0.70); Eosinophils % (Auto) 0 % (0.0-7.0); Hematocrit 44.3 % (41.0-55.0); Hemoglobin 14.6 g/dL (13.5-16.5); Lymphocytes # (Auto) 0.69 K/mcL (1.50-4.80); Lymphocytes % (Auto) 5.4 % (15.0-49.0); Mean Cell Volume 94.3 fL (80.0-100.0); Mean Platelet Volume 9.9 fL (7.4-10.4); Monocytes # (Auto) 0.67 K/mcL (0.10-0.90); Monocytes % (Auto) 5.2 % (1.0-12.0); Neutrophils % (Auto) 89.3 % (38.0-78.0); Platelet Count 220 K/mcL (140-440); Red Cell Distribution Width 14.5 % (11.5-14.5); WBC 12.8 K/mcL (4.5-11.0)
[2019-11-27 16:37] LABS: ALT/SGPT 20 U/L (<40); AST/SGOT 21 U/L (<40); Albumin 4.3 gm/dL (3.2-5.2); Albumin/Globulin Ratio 1.5 (1.0-2.3); Alkaline Phosphatase 82 U/L (39-117); Bilirubin,Total 0.6 mg/dL (0.1-1.0); Blood Urea Nitrogen 15 mg/dL (8-23); Calcium 9.4 mg/dL (8.6-10.4); Carbon Dioxide 21 mmol/L (22-30); Chloride 104 mmol/L (96-108); Globulin 2.8 gm/dL (2.2-3.7); Glomerular Filtration Rate 64; Glucose 120 mg/dL (70-105)
[2019-11-27 17:44] LABS: Appearance,Urine CLEAR (Clear); Bilirubin,Urine Negative (Negative); Color,Urine YELLOW; Culture Indicated,Urine No; Glucose,Urine (UA) Negative (Negative); Ketones,Urine 5 mg/dL (Negative); Leukocyte Esterase,Urine Negative /ug (Negative); Mucus,Urine MOD /hpf; Nitrate,Urine Negative (Negative); Protein,Urine 30 mg/dL (Negative); Specific Gravity,Urine 1.021 (1.000-1.035); Urine Blood Negative (Negative); Urine RBC 0 /hpf (0-1); Urine Squamous Epithelial Cell 0 /hpf (0-4); Urine WBC 1 /hpf (0-4); Urobilinogen,Urine Negative
[2019-11-27] MEDS ORDERED: ONDANSETRON 4 MG/2 ML VIAL IV PRN ×2 (18:10→20:10)
--- NOTE | 2019-11-27 18:42 | XRay Report ---
INDICATION: NG placement TECHNIQUE: Supine abdomen. COMPARISON: None FINDINGS:Esophagogastric tube in the proximal stomach. Bowel gas pattern remains abnormal with prominent gas filled small bowel in the mid abdomen. Appearance is consistent with mechanical small bowel obstruction IMPRESSION: Esophagogastric tube in the proximal stomach Interpreted and Authenticated by: Maxwell Chavis 11/27/19
--- NOTE | 2019-11-27 20:19 | Emergency Department Note ---
Nausea/Vomiting/Diarrhea HPI General Source: patient Mode of arrival: ambulatory Limitations: no limitations History of Present Illness HPI Narrative: Narrative: Related Data Home Medications Medication Instructions Recorded Confirmed aspirin 81 mg PO DAILY 05/09/16 11/27/19 citalopram 20 mg PO DAILY 05/09/16 11/27/19 diltiazem HCl 120 mg PO DAILY 05/09/16 11/27/19 methotrexate sodium 25 mg IJ WEEKLY 05/09/16 11/27/19 omeprazole 20 mg PO DAILY 05/09/16 11/27/19 primidone 50 mg PO BID 05/09/16 11/27/19 coenzyme Q10 100 mg capsule 100 mg PO QDAY 07/04/16 11/27/19 cyanocobalamin (vitamin B-12) 100 100 mcg PO QDAY 07/04/16 11/27/19 mcg tablet folic acid 1 mg tablet 1 mg PO QDAY 07/04/16 11/27/19 grape seed extract 1 tab PO QDAY 07/04/16 11/27/19 nitroglycerin 0.4 mg sublingual 0.4 mg SUBLINGUAL Q5M PRN 07/04/16 11/27/19 tablet omega-3 fatty acids 1,000 mg 1,000 mg PO QDAY 07/04/16 11/27/19 capsule apixaban 5 mg PO BID 02/15/19 11/27/19 carbidopa-levodopa 1 each PO TID 02/15/19 11/27/19 pramipexole 0.125 mg PO TID 02/15/19 11/27/19 trazodone 50 mg PO HS 02/15/19 11/27/19 Allergies Allergy/AdvReac Type Severity Reaction Status Date / Time No Known Drug Allergies Allergy Verified 02/15/19 02:53 Review of Systems ROS ROS Narrative: Narrative: PFSH Narrative Patient History Narrative: Narrative: Medical/Surgical/Family History All Active Problems (Updated 11/27/19 @ 18:10 by Alex Pizano PA-C) Parkinsons disease (Acute) Thoracic back pain (Acute) Strain of lumbar region (Acute) Groin strain (Acute) Abdominal pain (Acute) Small bowel obstruction (Acute) Partial obstruction of small intestine (Acute) Cold intolerance (Chronic) Intention tremor (Chronic) Peripheral neuropathy (Chronic) Insomnia, unspecified (Chronic) Anxiety and depression (Chronic) Fasting hyperglycemia (Chronic) Hypercholesterolemia (Chronic) Coronary artery disease (Chronic) Crohns disease (Chronic) Urinary frequency (Chronic) Hematuria (Chronic) Dyspnea (Acute) Fall (on)(from) incline, initial encounter (Acute) Abrasion (Acute) Medical History (Updated 11/27/19 @ 18:10 by Alex Pizano PA-C) Abrasion (Acute) Anxiety and depression (Chronic) Cold intolerance (Chronic) Coronary artery disease (Chronic) Crohns disease (Chronic) Dyspnea (Acute) Fall (on)(from) incline, initial encounter (Acute) Fasting hyperglycemia (Chronic) Hematuria (Chronic) Hypercholesterolemia (Chronic) Insomnia, unspecified (Chronic) Intention tremor (Chronic) Parkinsons disease (Acute) Peripheral neuropathy (Chronic) feet Urinary frequency (Chronic) Surgical History History of coronary artery bypass graft (Chronic) Family History Mother Cancer Father Lung cancer Brother Stroke Sister Melanoma Other Kidney stone Social History Smoking Status: Never smoker Alcohol Intake Frequency: does not drink Substance Use: does not use Exam Narrative Narrative: Narrative: General Limitations: no limitations Course Vital Signs Vital signs: Vital Signs Temperature 99 F 11/27/19 14:49 Pulse Rate 84 11/27/19 14:49 Respiratory Rate 12 11/27/19 14:49 Blood Pressure 155/69 11/27/19 14:49 Pulse Oximetry (%) 98 11/27/19 14:49 Temperature 99 F 11/27/19 14:49 Pulse Rate 85 11/27/19 19:46 Respiratory Rate 12 11/27/19 14:49 Blood Pressure 102/49 11/27/19 19:46 Pulse Oximetry (%) 96 11/27/19 19:46 MDM MDM Narrative Medical decision making narrative: Narrative: Lab Data Result diagrams: 11/27/19 16:01 11/27/19 16:01 Labs: Lab Results 11/27/19 11/27/19 11/27/19 Range/Units 16:01 16:01 16:23 WBC 12.8 H (4.5-11.0) K/mcL RBC 4.70 (4.50-5.90) M/mcL Hgb 14.6 (13.5-16.5) g/dL Hct 44.3 (41.0-55.0) % MCV 94.3 (80.0-100.0) fL MCH 31.1 (26.0-34.0) pg MCHC 33.0 (31.0-36.0) g/dL RDW 14.5 (11.5-14.5) % Plt Count 220 (140-440) K/mcL MPV 9.9 (7.4-10.4) fL Neut % (Auto) 89.3 H (38.0-78.0) % Lymph % (Auto) 5.4 L (15.0-49.0) % [place] % (Auto) 5.2 (1.0-12.0) % Eos % (Auto) 0 (0.0-7.0) % Baso % (Auto) 0.1 (0.0-2.0) % Lymph # (Auto) 0.69 L (1.50-4.80) K/mcL [place] # (Auto) 0.67 (0.10-0.90) K/mcL Eos # (Auto) 0 (0.00-0.70) K/mcL Baso # (Auto) 0.01 (0.00-0.20) K/mcL Absolute Neutrophils 11.46 H (1.80-8.00) K/mcL VBG Lactic Acid 1.8 (0.5-2.0) mmol/L Sodium 141 (133-145) mmol/L Potassium 4.1 (3.3-5.1) mmol/L Chloride 104 (96-108) mmol/L Carbon Dioxide 21 L (22-30) mmol/L Anion Gap 16.0 (8.0-16.0) BUN 15 (8-23) mg/dL Creatinine 1.1 (0.7-1.2) mg/dL GFR Calculation 64 Glucose 120 H (70-105) mg/dL Calcium 9.4 (8.6-10.4) mg/dL Total Bilirubin 0.6 (0.1-1.0) mg/dL AST 21 (<40) U/L ALT 20 (<40) U/L Alkaline Phosphatase 82 (39-117) U/L Total Protein 7.1 (5.9-8.4) gm/dL Albumin 4.3 (3.2-5.2) gm/dL Globulin 2.8 (2.2-3.7) gm/dL Albumin/Globulin Ratio 1.5 (1.0-2.3) Urine Color Urine Appearance (Clear) Urine pH (5.0-9.0) Ur Specific [place] (1.000-1.035) Urine Protein (Negative) mg/dL Urine Glucose (UA) (Negative) mg/dL Urine Ketones (Negative) mg/dL Urine Occult Blood (Negative) mg/dL Urine Nitrate (Negative) Urine Bilirubin (Negative) mg/dL Urine Urobilinogen mg/dL Ur Leukocyte Esterase (Negative) /ug Urine RBC (0-1) /hpf Urine WBC (0-4) /hpf Ur Squamous Epith Cells (0-4) /hpf Urine Bacteria (0) /hpf Urine Mucus (None) /hpf Ur Culture Indicated? 11/27/19 Range/Units 16:57 WBC (4.5-11.0) K/mcL RBC (4.50-5.90) M/mcL Hgb (13.5-16.5) g/dL Hct (41.0-55.0) % MCV (80.0-100.0) fL MCH (26.0-34.0) pg MCHC (31.0-36.0) g/dL RDW (11.5-14.5) % Plt Count (140-440) K/mcL MPV (7.4-10.4) fL Neut % (Auto) (38.0-78.0) % Lymph % (Auto) (15.0-49.0) % [place] % (Auto) (1.0-12.0) % Eos % (Auto) (0.0-7.0) % Baso % (Auto) (0.0-2.0) % Lymph # (Auto) (1.50-4.80) K/mcL [place] # (Auto) (0.10-0.90) K/mcL Eos # (Auto) (0.00-0.70) K/mcL Baso # (Auto) (0.00-0.20) K/mcL Absolute Neutrophils (1.80-8.00) K/mcL VBG Lactic Acid (0.5-2.0) mmol/L Sodium (133-145) mmol/L Potassium (3.3-5.1) mmol/L Chloride (96-108) mmol/L Carbon Dioxide (22-30) mmol/L Anion Gap (8.0-16.0) BUN (8-23) mg/dL Creatinine (0.7-1.2) mg/dL GFR Calculation Glucose (70-105) mg/dL Calcium (8.6-10.4) mg/dL Total Bilirubin (0.1-1.0) mg/dL AST (<40) U/L ALT (<40) U/L Alkaline Phosphatase (39-117) U/L Total Protein (5.9-8.4) gm/dL Albumin (3.2-5.2) gm/dL Globulin (2.2-3.7) gm/dL Albumin/Globulin Ratio (1.0-2.3) Urine Color Yellow Urine Appearance Clear (Clear) Urine pH 7.0 (5.0-9.0) Ur Specific [place] 1.021 (1.000-1.035) Urine Protein 30 A (Negative) mg/dL Urine Glucose (UA) Negative (Negative) mg/dL Urine Ketones 5 A (Negative) mg/dL Urine Occult Blood Negative (Negative) mg/dL Urine Nitrate Negative (Negative) Urine Bilirubin Negative (Negative) mg/dL Urine Urobilinogen Negative mg/dL Ur Leukocyte Esterase Negative (Negative) /ug Urine RBC 0 (0-1) /hpf Urine WBC 1 (0-4) /hpf Ur Squamous Epith Cells 0 (0-4) /hpf Urine Bacteria None (0) /hpf Urine Mucus Mod A (None) /hpf Ur Culture Indicated? No Discharge Plan Patient/Caregiver Discharge Instructions Pt seen by PHLEBOTOMY TECHNOLOGIST/PA only: Yes Clinical Impression: Small bowel obstruction Patient Disposition: Xfer As Outpt/Obs ([facility]) Condition: Good Follow up with: Tiffanie Amado MD [Primary Care Provider] - Prescriptions: No Action nitroglycerin [Nitrostat] 0.4 mg tablet, sublingual 0.4 mg SUBLINGUAL Q5M PRN (Reason: Chest Pain) RF: 0 omega-3 fatty acids [Fish Oil Concentrate] 1,000 mg capsule 1,000 mg PO QDAY RF: 0 grape seed extract 1 tab PO QDAY RF: 0 coenzyme Q10 100 mg capsule 100 mg PO QDAY RF: 0 cyanocobalamin (vitamin B-12) 100 mcg tablet 100 mcg PO QDAY RF: 0 folic acid 1 mg tablet 1 mg PO QDAY RF: 0 primidone 50 MG tablet 50 mg PO BID RF: 0 methotrexate sodium 25 MG/ML solution 25 mg IJ WEEKLY RF: 0 citalopram 20 MG tablet 20 mg PO DAILY RF: 0 omeprazole 20 MG capsule 20 mg PO DAILY RF: 0 aspirin 81 MG tablet,chewable 81 mg PO DAILY RF: 0 diltiazem HCl 120 MG capsule,extended release 24hr 120 mg PO DAILY RF: 0 apixaban 5 MG tablet 5 mg PO BID RF: 0 trazodone 50 MG tablet 50 mg PO HS RF: 0 pramipexole 0.25 MG tablet 0.125 mg PO TID RF: 0 carbidopa-levodopa 1 EACH tablet 1 each PO TID RF: 0
--- NOTE | 2019-11-27 20:21 | General Surg History&Physical ---
HPI History of Present Illness Patient information: Note initiated : 11/27/19 at 8:20 pm Service Date, if different from initiated Date: [] Patient: Scooter Maria a 79 y/o M admitted on for Nausea and vomiting. Chief Complaint: [] History of present illness: Mr. Maria is a 79 year old [facility] PF[facility] All Active Problems (Updated 11/27/19 @ 18:10 by Alex Pizano PA-C) Parkinsons disease (Acute) Thoracic back pain (Acute) Strain of lumbar region (Acute) Groin strain (Acute) Abdominal pain (Acute) Small bowel obstruction (Acute) Partial obstruction of small intestine (Acute) Cold intolerance (Chronic) Intention tremor (Chronic) Peripheral neuropathy (Chronic) Insomnia, unspecified (Chronic) Anxiety and depression (Chronic) Fasting hyperglycemia (Chronic) Hypercholesterolemia (Chronic) Coronary artery disease (Chronic) Crohns disease (Chronic) Urinary frequency (Chronic) Hematuria (Chronic) Dyspnea (Acute) Fall (on)(from) incline, initial encounter (Acute) Abrasion (Acute) Medical History (Updated 11/27/19 @ 18:10 by Alex Pizano PA-C) Abrasion (Acute) Anxiety and depression (Chronic) Cold intolerance (Chronic) Coronary artery disease (Chronic) Crohns disease (Chronic) Dyspnea (Acute) Fall (on)(from) incline, initial encounter (Acute) Fasting hyperglycemia (Chronic) Hematuria (Chronic) Hypercholesterolemia (Chronic) Insomnia, unspecified (Chronic) Intention tremor (Chronic) Parkinsons disease (Acute) Peripheral neuropathy (Chronic) feet Urinary frequency (Chronic) Surgical History History of coronary artery bypass graft (Chronic) Family History Mother Cancer Father Lung cancer Brother Stroke Sister Melanoma Other Kidney stone Social History (Updated 08/09/16 @ 09:18 by Rosa Elena Swenson RN) marital status: smoking status: Never smoker alcohol intake frequency: does not drink substance use type: does not use MEDS/ALLERGIES Home Medications and Allergies Home Medications Medication Instructions Recorded Confirmed Type aspirin 81 mg PO DAILY 05/09/16 11/27/19 History citalopram 20 mg PO DAILY 05/09/16 11/27/19 History diltiazem HCl 120 mg PO DAILY 05/09/16 11/27/19 History methotrexate sodium 25 mg IJ WEEKLY 05/09/16 11/27/19 History omeprazole 20 mg PO DAILY 05/09/16 11/27/19 History primidone 50 mg PO BID 05/09/16 11/27/19 History coenzyme Q10 100 mg capsule 100 mg PO QDAY 07/04/16 11/27/19 History cyanocobalamin (vitamin B-12) 100 100 mcg PO QDAY 07/04/16 11/27/19 History mcg tablet folic acid 1 mg tablet 1 mg PO QDAY 07/04/16 11/27/19 History grape seed extract 1 tab PO QDAY 07/04/16 11/27/19 History nitroglycerin 0.4 mg sublingual 0.4 mg SUBLINGUAL Q5M PRN 07/04/16 11/27/19 History tablet omega-3 fatty acids 1,000 mg 1,000 mg PO QDAY 07/04/16 11/27/19 History capsule apixaban 5 mg PO BID 02/15/19 11/27/19 History carbidopa-levodopa 1 each PO TID 02/15/19 11/27/19 History pramipexole 0.125 mg PO TID 02/15/19 11/27/19 History trazodone 50 mg PO HS 02/15/19 11/27/19 History Allergies Allergy/AdvReac Type Severity Reaction Status Date / Time No Known Drug Allergies Allergy Verified 02/15/19 02:53 Physical Examination Vital Signs Vital signs: Temp Pulse Resp BP Pulse Ox 99 F 85 12 102/49 96 11/27/19 14:49 11/27/19 19:46 11/27/19 14:49 11/27/19 19:46 11/27/19 19:46 General physical appearance General physical exam: well developed, well nourished, no distress and no pain Eyes Eye exam: PERRL and normal ocular movement ENT ENT exam: normal pinna, normal nares, normal mucosa and decreased hearing Head Head exam IM: Present atraumatic, normal inspection and normocephalic Neck Neck exam: no masses, no bruits, trachea midline, no lymphadenopathy and no venous distension Cardiovascular Cardiovascular exam IM: Present normal rate and rhythm, RRR, +S1 and +S2; Absent JVD Respiratory Respiratory exam: normal expansion, normal respiratory effort, clear to percussion, clear to auscultation and other Abdomen Abdomen: Present non tender and bowel sounds (normal bowel sounds) Integumentary Integumentary: Present no rash, no growths and no abnormal pigmentation Neurologic Neurologic: Present normal sensation and other (resting tremor) Musculoskeletal Musculoskeletal: Present normal gait and normal posture Psychiatric Psychiatric: Present oriented to time, oriented to person, oriented to place, speech is normal and memory intact Results Labs Result diagrams: 11/27/19 16:01 11/27/19 16:01 Labs: Abnormal lab results 11/27/19 11/27/19 11/27/19 Range/Units 16:01 16:01 16:57 WBC 12.8 H (4.5-11.0) K/mcL Neut % (Auto) 89.3 H (38.0-78.0) % Lymph % (Auto) 5.4 L (15.0-49.0) % Lymph # (Auto) 0.69 L (1.50-4.80) K/mcL Absolute Neutrophils 11.46 H (1.80-8.00) K/mcL Carbon Dioxide 21 L (22-30) mmol/L Glucose 120 H (70-105) mg/dL Urine Protein 30 A (Negative) mg/dL Urine Ketones 5 A (Negative) mg/dL Urine Mucus Mod A (None) /hpf Diabetes panel 11/27/19 Range/Units 16:01 Sodium 141 (133-145) mmol/L Potassium 4.1 (3.3-5.1) mmol/L Chloride 104 (96-108) mmol/L Carbon Dioxide 21 L (22-30) mmol/L BUN 15 (8-23) mg/dL Creatinine 1.1 (0.7-1.2) mg/dL Glucose 120 H (70-105) mg/dL Calcium 9.4 (8.6-10.4) mg/dL AST 21 (<40) U/L ALT 20 (<40) U/L Alkaline Phosphatase 82 (39-117) U/L Total Protein 7.1 (5.9-8.4) gm/dL Albumin 4.3 (3.2-5.2) gm/dL Calcium panel 11/27/19 Range/Units 16:01 Calcium 9.4 (8.6-10.4) mg/dL Albumin 4.3 (3.2-5.2) gm/dL Pituitary panel 11/27/19 Range/Units 16:01 Sodium 141 (133-145) mmol/L Potassium 4.1 (3.3-5.1) mmol/L Chloride 104 (96-108) mmol/L Carbon Dioxide 21 L (22-30) mmol/L BUN 15 (8-23) mg/dL Creatinine 1.1 (0.7-1.2) mg/dL Glucose 120 H (70-105) mg/dL Calcium 9.4 (8.6-10.4) mg/dL Adrenal panel 11/27/19 Range/Units 16:01 Sodium 141 (133-145) mmol/L Potassium 4.1 (3.3-5.1) mmol/L Chloride 104 (96-108) mmol/L Carbon Dioxide 21 L (22-30) mmol/L BUN 15 (8-23) mg/dL Creatinine 1.1 (0.7-1.2) mg/dL Glucose 120 H (70-105) mg/dL Calcium 9.4 (8.6-10.4) mg/dL Total Bilirubin 0.6 (0.1-1.0) mg/dL AST 21 (<40) U/L ALT 20 (<40) U/L Alkaline Phosphatase 82 (39-117) U/L Total Protein 7.1 (5.9-8.4) gm/dL Albumin 4.3 (3.2-5.2) gm/dL All other labs normal. A/P Assessment and plan (1) Partial obstruction of small intestine: Status: Acute (2) Peripheral neuropathy: Status: Chronic Comment: feet (3) Anxiety and depression: Status: Chronic (4) Parkinsons disease: Status: Acute Time Spent With Patient Time: Total time spent is greater than 50% in coordination of care (as documented) at patient's floor/unit and/or counseling patient:
[2019-11-27] MEDS ORDERED: HYDROmorphone 0.5 MG/0.5 ML SYRINGE IV PRN (20:22)
[2019-11-27] MEDS: 0.9 % SODIUM CHLORIDE 10 ML SYRINGE IV SCH ×2 (21:54)
[2019-11-27] MEDS: 0.9 % SODIUM CHLORIDE 1,000 ML IV SCH (21:54)
[2019-11-28] MEDS: METOCLOPRAMIDE 10 MG/2 ML VIAL IV SCH ×5 (05:53→23:32)
[2019-11-28] MEDS: 0.9 % SODIUM CHLORIDE 1,000 ML IV SCH ×3 (05:54→16:57)
[2019-11-28] MEDS: 0.9 % SODIUM CHLORIDE 10 ML SYRINGE IV SCH ×7 (05:54→23:33)
[2019-11-28 06:59] LABS: Basophils # (Auto) 0.01 K/mcL (0.00-0.20); Basophils % (Auto) 0.2 % (0.0-2.0); Eosinophils # (Auto) 0.05 K/mcL (0.00-0.70); Eosinophils % (Auto) 0.8 % (0.0-7.0); Hematocrit 38.3 % (41.0-55.0); Hemoglobin 12.4 g/dL (13.5-16.5); Lymphocytes # (Auto) 0.72 K/mcL (1.50-4.80); Lymphocytes % (Auto) 11.7 % (15.0-49.0); Mean Cell Volume 95.8 fL (80.0-100.0); Mean Corpuscular HGB Conc 32.4 g/dL (31.0-36.0); Mean Platelet Volume 10.3 fL (7.4-10.4); Monocytes # (Auto) 0.75 K/mcL (0.10-0.90); Monocytes % (Auto) 12.1 % (1.0-12.0); Neutrophils % (Auto) 75.2 % (38.0-78.0); Platelet Count 184 K/mcL (140-440); Red Cell Distribution Width 14.6 % (11.5-14.5); WBC 6.2 K/mcL (4.5-11.0)
[2019-11-28 08:16] LABS: ALT/SGPT 14 U/L (<40); AST/SGOT 17 U/L (<40); Albumin 3.6 gm/dL (3.2-5.2); Albumin/Globulin Ratio 1.6 (1.0-2.3); Alkaline Phosphatase 61 U/L (39-117); Bilirubin,Direct < 0.2 mg/dL (<0.3); Bilirubin,Total 0.7 mg/dL (0.1-1.0); Blood Urea Nitrogen 16 mg/dL (8-23); Calcium 8.8 mg/dL (8.6-10.4); Carbon Dioxide 23 mmol/L (22-30); Chloride 108 mmol/L (96-108); Globulin 2.3 gm/dL (2.2-3.7); Glomerular Filtration Rate 64; Glucose 100 mg/dL (70-105); Lactate Dehydrogenase 213 U/L (135-225); Phosphorous 2.3 mg/dL (2.5-4.5); Triglycerides 117 mg/dL (<150); Uric Acid 5.1 mg/dL (2.5-8.0)
[2019-11-28] MEDS ORDERED: DIATRIZOATE MEGLU/DIATRIZO SOD 30 ML BOTTLE PO ONE (09:09)
--- NOTE | 2019-11-28 09:25 | XRay Report ---
INDICATION: partial small bowel obstruction follow-up TECHNIQUE: 720 mL dilute barium was given and images were obtained immediately following ingestion and at 1 hour postingestion COMPARISON: Plain film examinations dated 11/27/2019 and 02/17/2019 FINDINGS: Test Developer film demonstrates improved bowel gas pattern. There is gas within the colon. There is some small bowel gas without significant dilatation. Barium was given through the nasogastric tube. There is rapid passage of barium through the small bowel. There is barium in the colon by one hour postingestion. Appearance is consistent with resolution of mechanical small bowel obstruction. IMPRESSION: Findings consistent with resolution of mechanical small bowel obstruction Interpreted and Authenticated by: Maxwell Chavis 11/28/19
--- NOTE | 2019-11-28 12:16 | General Surgery Progress Note ---
SUBJECTIVE Subjective Patient information: Note initiated : 11/28/19 at 12:11 pm Service Date, if different from initiated Date: [] Patient: Scooter Maria 79 y/o M admitted on 11/27/19 for Nausea and vomiting. Chief Complaint: [] Principal diagnosis: partial small bowel obstruction Interval history: patient is doing well. He had a small bowel follow-through performed earlier today which showed normal transit through the small bowel into the colon. In the interim he's had multiple bowel movements. All of his symptoms have resolved. His nasogastric tube has been removed and his diet will be advanced. Constitutional Vitals: Vital Signs Temp Pulse Resp BP Pulse Ox 98.5 F 72 18 135/68 96 11/28/19 11:50 11/28/19 11:50 11/28/19 11:50 11/28/19 11:50 11/28/19 11:50 Period Temp Pulse Resp BP Sys/[place] Pulse Ox Last 24 Hr 98 F-99 F 72-94 12-18 102-155/49-71 91-100 Intake and Output 11/27/19 11/28/19 11/28/19 21:59 05:59 13:59 Intake Total 1000 1270 200 Output Total 100 800 175 Balance 900 470 25 Weight 182 lb 4.8 oz Intake & Output: Intake & Output 11/27/19 11/28/19 11/28/19 21:59 05:59 13:59 Intake Total 1000 1270 200 Output Total 100 800 175 Balance 900 470 25 Weight 182 lb 4.8 oz Intake: IV 1000 1000 Sodium Chloride 0.9% 1,000 ml @ 1000 1000 125 mls/hr IV .Q8H [facility] Rx#: [id number] Oral 270 200 Output: Gastric Drainage 450 Right Nare 450 Urine Catheter Amount 50 Void Amount 100 350 125 Other: Urine Appearance Clear Clear Clear Urine Color Bright Yellow Bright Yellow Dark Yellow Urine Odor Normal Normal Stool Size Small Small Stool Color Brown Brown Stool Consistency Liquid Liquid Loose Watery Loose # Voids 1 # Bowel Movements 1 1 Head Head exam: Present atraumatic, normal inspection and normocephalic Eye Eye exam: Present EOMI Pupils: Present PERRL ENT ENT exam: Present normal exam and normal oropharynx Neck Neck exam: Present normal inspection Respiratory Respiratory exam: Present CTAB; Absent rales, rhonchi and wheezes Cardiovascular Cardiovascular exam: Present normal rate and rhythm, RRR, +S1 and +S2; Absent JVD GI/Abdominal GI/Abdominal exam: Present normal bowel sounds, soft and hyperactive bowel sounds; Absent distended and tenderness Extremities Exam Extremities exam: Present full ROM and neurovascular intact; Absent pedal edema Back Exam Back exam: Absent normal inspection and tenderness Neurological Exam Neurological exam: Present CN II-XII intact, normal gait, oriented X3 and reflexes normal Additional comments: intention tremor Psychiatric Psychiatric exam: Present anxious, normal affect and normal mood Skin Skin exam: Present intact and normal color A/P Assessment and plan (1) Partial obstruction of small intestine: Status: Acute (2) Parkinsons disease: Status: Acute (3) Intention tremor: Status: Chronic (4) Peripheral neuropathy: Status: Chronic Comment: feet Narrative A/P Narrative: discontinue IV fluids Liquid diet and advance as tolerated Two-view abdominal x-ray in the morning Time Spent With Patient Time: Total time spent is greater than 50% in coordination of care (as documented) at patient's floor/unit and/or counseling patient:
[2019-11-28] MEDS ORDERED: DICYCLOMINE 20 MG TABLET PO PRN (20:26)
[2019-11-29] MEDS: 0.9 % SODIUM CHLORIDE 10 ML SYRINGE IV SCH ×6 (06:16→23:05)
[2019-11-29] MEDS: METOCLOPRAMIDE 10 MG/2 ML VIAL IV SCH ×4 (06:16→23:42)
[2019-11-29 06:19] LABS: Basophils # (Auto) 0.01 K/mcL (0.00-0.20); Basophils % (Auto) 0.1 % (0.0-2.0); Eosinophils # (Auto) 0.13 K/mcL (0.00-0.70); Eosinophils % (Auto) 1.9 % (0.0-7.0); Hematocrit 38.1 % (41.0-55.0); Hemoglobin 12.3 g/dL (13.5-16.5); Lymphocytes # (Auto) 0.86 K/mcL (1.50-4.80); Lymphocytes % (Auto) 12.6 % (15.0-49.0); Mean Cell Volume 95.5 fL (80.0-100.0); Mean Corpuscular HGB Conc 32.3 g/dL (31.0-36.0); Mean Platelet Volume 9.8 fL (7.4-10.4); Monocytes # (Auto) 0.79 K/mcL (0.10-0.90); Monocytes % (Auto) 11.6 % (1.0-12.0); Neutrophils % (Auto) 73.8 % (38.0-78.0); Platelet Count 186 K/mcL (140-440); RBC 3.99 M/mcL (4.50-5.90); Red Cell Distribution Width 14.5 % (11.5-14.5); WBC 6.8 K/mcL (4.5-11.0)
[2019-11-29 06:43] LABS: ALT/SGPT 14 U/L (<40); AST/SGOT 22 U/L (<40); Albumin 3.6 gm/dL (3.2-5.2); Albumin/Globulin Ratio 1.4 (1.0-2.3); Alkaline Phosphatase 65 U/L (39-117); Bilirubin,Direct < 0.2 mg/dL (<0.3); Bilirubin,Total 0.6 mg/dL (0.1-1.0); Blood Urea Nitrogen 14 mg/dL (8-23); Calcium 8.7 mg/dL (8.6-10.4); Carbon Dioxide 23 mmol/L (22-30); Chloride 105 mmol/L (96-108); Globulin 2.5 gm/dL (2.2-3.7); Glomerular Filtration Rate 64; Glucose 90 mg/dL (70-105); Lactate Dehydrogenase 209 U/L (135-225); Phosphorous 2.5 mg/dL (2.5-4.5); Triglycerides 123 mg/dL (<150); Uric Acid 5.1 mg/dL (2.5-8.0)
--- NOTE | 2019-11-29 13:18 | XRay Report ---
INDICATION: Verify SBO resolved TECHNIQUE: Supine and upright abdomen. COMPARISON: Previous small bowel study dated 11/28/2019. Previous plain film examinations dated 11/27/2019, 02/17/2019 FINDINGS:Bowel gas pattern is unremarkable and nonobstructive. There is gas throughout the colon. No dilated gas-filled small bowel. No air-fluid levels. No pneumoperitoneum. No biliary or portal venous gas. IMPRESSION: Unremarkable bowel gas pattern Interpreted and Authenticated by: Maxwell Chavis 11/29/19
--- NOTE | 2019-11-29 13:44 | General Surgery Progress Note ---
SUBJECTIVE Subjective Patient information: Note initiated : 11/29/19 at 1:40 pm Service Date, if different from initiated Date: [] Patient: Scooter Maria 79 y/o M admitted on 11/27/19 for Nausea and vomiting. Chief Complaint: [] Principal diagnosis: partial small bowel obstruction Interval history: patient continues to improve. He had multiple bowel movements last evening and another bowel movement today. He denies nausea and is tolerating soft diet. Inpatient panel is totally normal. White blood count 6.8, hemoglobin 12.3, hematocrit 38.1; Constitutional Vitals: Vital Signs Temp Pulse Resp BP Pulse Ox 97.4 F 71 18 136/74 94 11/29/19 12:00 11/29/19 12:00 11/29/19 12:00 11/29/19 12:00 11/29/19 12:00 Period Temp Pulse Resp BP Sys/[place] Pulse Ox Last 24 Hr 97.4 F-99.1 F 71-85 16-20 110-144/61-74 93-95 Intake and Output 11/28/19 11/29/19 11/29/19 21:59 05:59 13:59 Intake Total 720 950 360 Output Total 100 Balance 720 850 360 Weight 176 lb 12.8 oz Intake & Output: Intake & Output 11/28/19 11/29/19 11/29/19 21:59 05:59 13:59 Intake Total 720 950 360 Output Total 100 Balance 720 850 360 Weight 176 lb 12.8 oz Intake: Oral 720 950 360 Output: Void Amount 100 Other: Meal Dinner Breakfast Percent of Meal Consumed 100% 100% Feeding Ability Independent Urine Appearance Clear Urine Color Bright Yellow Urine Odor Normal Stool Size Moderate Small Stool Color Brown Brown Yellow Stool Consistency Liquid Soft Loose Loose # Voids 1 1 1 # Bowel Movements 1 1 Head Head exam: Present atraumatic, normal inspection and normocephalic Eye Eye exam: Present EOMI Pupils: Present PERRL ENT ENT exam: Present normal exam and normal oropharynx Neck Neck exam: Present normal inspection Respiratory Respiratory exam: Present CTAB; Absent rales, rhonchi and wheezes Cardiovascular Cardiovascular exam: Present normal rate and rhythm, RRR, +S1 and +S2; Absent JVD GI/Abdominal GI/Abdominal exam: Present normal bowel sounds, soft and hyperactive bowel sounds; Absent distended and tenderness Extremities Exam Extremities exam: Present full ROM and neurovascular intact; Absent pedal edema Neurological Exam Neurological exam: Present CN II-XII intact, normal gait, oriented X3 and reflexes normal Additional comments: intention tremor Psychiatric Psychiatric exam: Present anxious, normal affect and normal mood Skin Skin exam: Present intact and normal color A/P Assessment and plan (1) Partial obstruction of small intestine: Status: Acute (2) Parkinsons disease: Status: Acute (3) Peripheral neuropathy: Status: Chronic Comment: feet (4) Anxiety and depression: Status: Chronic Narrative A/P Narrative: patient significantly improved. Abdominal x-rays reveal gas throughout small bowel and colon compatible with mildly persistent ileus but no obstructive pattern. He's tolerating diet and does not have any nausea. If he remains stable will consider discharge home tomorrow. Time Spent With Patient Time: Total time spent is greater than 50% in coordination of care (as documented) at patient's floor/unit and/or counseling patient:
[2019-11-29] MEDS: CARBIDOPA/LEVODOPA 25/100 TABLET PO SCH (21:54)
[2019-11-29] MEDS: PRAMIPEXOLE 0.25 MG TABLET PO SCH (21:54)
[2019-11-29] MEDS ORDERED: PRIMIDONE 50 MG TABLET PO SCH (22:00)
[2019-11-29] MEDS ORDERED: traZODone HCL 50 MG TABLET PO PRN (22:55)
[2019-11-29] MEDS ORDERED: traZODone HCL 50 MG TABLET ONE (23:04)
[2019-11-30] MEDS: METOCLOPRAMIDE 10 MG/2 ML VIAL IV SCH (05:54)
[2019-11-30] MEDS: 0.9 % SODIUM CHLORIDE 10 ML SYRINGE IV SCH ×2 (05:55→05:58)
[2019-11-30 07:31] LABS: Basophils # (Auto) 0.01 K/mcL (0.00-0.20); Basophils % (Auto) 0.2 % (0.0-2.0); Eosinophils # (Auto) 0.11 K/mcL (0.00-0.70); Eosinophils % (Auto) 1.8 % (0.0-7.0); Hematocrit 38.3 % (41.0-55.0); Hemoglobin 12.3 g/dL (13.5-16.5); Lymphocytes # (Auto) 0.74 K/mcL (1.50-4.80); Mean Corpuscular HGB Conc 32.1 g/dL (31.0-36.0); Mean Platelet Volume 10.1 fL (7.4-10.4); Monocytes # (Auto) 0.81 K/mcL (0.10-0.90); Monocytes % (Auto) 13.1 % (1.0-12.0); Neutrophils % (Auto) 72.9 % (38.0-78.0); Platelet Count 178 K/mcL (140-440); RBC 4.03 M/mcL (4.50-5.90); Red Cell Distribution Width 14.1 % (11.5-14.5); WBC 6.2 K/mcL (4.5-11.0)
[2019-11-30 08:52] LABS: ALT/SGPT 7 U/L (<40); AST/SGOT 24 U/L (<40); Albumin 3.8 gm/dL (3.2-5.2); Albumin/Globulin Ratio 1.7 (1.0-2.3); Alkaline Phosphatase 66 U/L (39-117); Bilirubin,Direct < 0.2 mg/dL (<0.3); Bilirubin,Total 0.6 mg/dL (0.1-1.0); Blood Urea Nitrogen 16 mg/dL (8-23); Calcium 8.5 mg/dL (8.6-10.4); Carbon Dioxide 23 mmol/L (22-30); Chloride 104 mmol/L (96-108); Globulin 2.3 gm/dL (2.2-3.7); Glomerular Filtration Rate 64; Glucose 90 mg/dL (70-105); Lactate Dehydrogenase 217 U/L (135-225); Phosphorous 3.5 mg/dL (2.5-4.5); Triglycerides 117 mg/dL (<150); Uric Acid 5.4 mg/dL (2.5-8.0)
[2019-11-30] MEDS: CARBIDOPA/LEVODOPA 25/100 TABLET PO SCH (08:53)
[2019-11-30] MEDS: PRAMIPEXOLE 0.25 MG TABLET PO SCH (08:53)
--- NOTE | 2019-11-30 11:53 | Discharge Summary ---
Discharge Provider Provider Patient information: Note initiated : 11/30/19 at 11:39 am Service Date, if different from initiated Date: [] Patient: Scooter Maria 79 y/o M admitted on 11/27/19 for Nausea and vomiting. 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 He was last admitted at this facility in February 2019. Patient has a four-day history of increasing abdominal pain, lack of flatus, and inability to have a bowel movement with associated abdominal distention and progressive nausea and vomiting. He finally came to the emergency room because of nausea vomiting and initial x-rays suggested dilated loops of small bowel compatible with obstruction however he did have a small amount of gas in his proximal and distal colon. Patient was admitted and started on nasogastric decompression. Following morning he received Gastrografin small bowel follow-through which was diagnostic and therapeutic. He had over 10 bowel movements thereafter and has done well since then. He was on advanced to a regular diet yesterday. He was given some dicyclomine because of cramps but those have resolved. He is asymptomatic at this time and is stable for discharge. Discharge diagnosis: partial small bowel obstruction Secondary discharge diagnosis: history of terminal ileal stricture Parkinson's disease Peripheral neuropathy Anxiety and depression History of coronary artery disease Reason for admission: possible small bowel obstruction Procedures: none Pertinent studies/significant findings: Gastrografin small bowel follow-through Complications: none Time Spent with Patient Time attestation: Total time spent providing and/or coordinating discharge services: Physical Examination Vital Signs Vital signs: Temp Pulse Resp BP Pulse Ox 98.8 F 80 16 129/61 92 11/30/19 08:00 11/30/19 08:00 11/30/19 08:00 11/30/19 08:00 11/30/19 08:00 General physical appearance General physical exam: well developed, well nourished, no distress and no pain Eyes Eye exam: PERRL and normal ocular movement ENT ENT exam: normal pinna, normal nares, normal mucosa and decreased hearing Head Head exam IM: Present atraumatic, normal inspection and normocephalic Neck Neck exam: no masses, no bruits, trachea midline, no lymphadenopathy and no venous distension Cardiovascular Cardiovascular exam IM: Present normal rate and rhythm, RRR, +S1 and +S2; Absent JVD Respiratory Respiratory exam: normal expansion, normal respiratory effort, clear to percussion, clear to auscultation and other Abdomen Abdomen: Present non tender and bowel sounds (normal bowel sounds) Integumentary Integumentary: Present no rash, no growths and no abnormal pigmentation Neurologic Neurologic: Present normal sensation and other (resting tremor) Musculoskeletal Musculoskeletal: Present normal gait and normal posture Psychiatric Psychiatric: Present oriented to time, oriented to person, oriented to place, speech is normal and memory intact Discharge Plan Patient/Caregiver Discharge Instructions Activity: increase activity as tolerated and resume usual activities as tolerated Diet: Regular Diet Prescriptions: New polyethylene glycol 3350 [Miralax] 17 gram/dose powder 17 g PO BID Qty: 510 RF: 3 Continued nitroglycerin [Nitrostat] 0.4 mg tablet, sublingual 0.4 mg SUBLINGUAL Q5M PRN (Reason: Chest Pain) RF: 0 omega-3 fatty acids [Fish Oil Concentrate] 1,000 mg capsule 1,000 mg PO QDAY RF: 0 grape seed extract 1 tab PO QDAY RF: 0 coenzyme Q10 100 mg capsule 100 mg PO QDAY RF: 0 cyanocobalamin (vitamin B-12) 100 mcg tablet 100 mcg PO QDAY RF: 0 folic acid 1 mg tablet 1 mg PO QDAY RF: 0 primidone 50 MG tablet 100 mg PO HS RF: 0 methotrexate sodium 25 MG/ML solution 25 mg IJ WEEKLY RF: 0 citalopram 20 MG tablet 20 mg PO DAILY RF: 0 omeprazole 20 MG capsule 20 mg PO DAILY RF: 0 aspirin 81 MG tablet,chewable 81 mg PO DAILY RF: 0 diltiazem HCl 120 MG capsule,extended release 24hr 120 mg PO DAILY RF: 0 trazodone 50 MG tablet 50 mg PO HS RF: 0 pramipexole 0.25 MG tablet 0.125 mg PO TID RF: 0 carbidopa-levodopa 1 EACH tablet 1 tab PO TID RF: 0 Follow Up Plan Follow up with: Tiffanie Amado MD [Primary Care Provider] - Patient Disposition: Home, Self-Care Assessment: use the MiraLAX 2-3 times daily to keep your bowels soft Prognosis: Good Rehab Potential: Good I certify that the patient requires SNF services: No Overall status at discharge: patient is back to baseline Discharge Orders: Discharge Order (Routine); Ordered 11/30/19 Ordered By: José Miguel Hidalgo Pending Pending Pending: Resuscitation Status Do Not Resuscitate Diet GI Soft/Transitional Start Sat Nov 28 121 Carbidopa/Levodopa (Sinemet 25/100) 1 tab PO TID ABIMBOLA Last Admin: 11/30/19 08:53 Dose: 1 tab Documented by: [email or web address] Admin: 11/29/19 21:54 Dose: 1 tab Documented by: MEGHANN Dicyclomine HCl (Dicyclomine) 20 mg PO Q6HP PRN PRN Reason: abdominal cramps Last Admin: 11/28/19 21:35 Dose: 20 mg Documented by: MEGHANN Metoclopramide HCl (Reglan) 5 mg IV Q6 ABIMBOLA Last Admin: 11/30/19 05:54 Dose: Not Given Documented by: Admin: 11/29/19 23:42 Dose: Not Given Documented by: Admin: 11/29/19 17:29 Dose: 5 mg Documented by: Admin: 11/29/19 12:17 Dose: 5 mg Documented by: Admin: 11/29/19 06:16 Dose: 5 mg Documented by: Admin: 11/28/19 23:32 Dose: 5 mg Documented by: Admin: 11/28/19 16:57 Dose: 5 mg Documented by: JOSE ALFREDO Admin: 11/28/19 11:26 Dose: 5 mg Documented by: JOSE ALFREDO Admin: 11/28/19 05:53 Dose: 5 mg Documented by: Admin: 11/28/19 00:00 Dose: 5 mg Documented by: MEGHANN Ondansetron HCl (Zofran) 4 mg IV Q6HP PRN PRN Reason: Nausea And Vomiting Last Admin: 11/29/19 23:05 Dose: 4 mg Documented by: ROBLESM Pramipexole Dihydrochloride (Mirapex) 0.125 mg PO TID [facility] Last Admin: 11/30/19 08:53 Dose: 0.125 mg Documented by: [email or web address] Admin: 11/29/19 21:54 Dose: 0.125 mg Documented by: MEGHANN Primidone (Mysoline) 100 mg PO HS [facility] Last Admin: 11/29/19 21:54 Dose: 100 mg Documented by: MEGHANN Sodium Chloride (Saline Flush) 10 ml IV Q8 [facility] Last Admin: 11/30/19 05:58 Dose: Not Given Documented by: Admin: 11/29/19 23:05 Dose: 10 ml Documented by: Admin: 11/29/19 12:17 Dose: Not Given Documented by: Admin: 11/29/19 06:18 Dose: Not Given Documented by: Admin: 11/28/19 22:39 Dose: Not Given Documented by: Admin: 11/28/19 13:39 Dose: 10 ml Documented by: JOSE ALFREDO Admin: 11/28/19 05:54 Dose: Not Given Documented by: Admin: 11/27/19 21:54 Dose: Not Given Documented by: MEGHANN Shift Summary 11/30/19 04:54 Shift Summary by Ashley Muñoz Patient alert and oriented x4. Ambulated in hallway 400 ft this morning. Patient felt nauseous after giving his PO HS meds. Given zofran with good effect. Held reglan dose due to interaction with his Sinemet medication. Unable to sleep, given trazodone, pt slept at midnight. IV on right wrist kept saline locked. Up ad rj in the room but need standby assist in hallway. VSS. For possible discharge today. Initialized on 11/30/19 04:54 - END OF NOTE
== END 2019-11-30 13:00 | disposition home or self-care (01) | DRG 390 ==
LOC: ED 14:47 → MEDSUR 21:04
PROVIDERS: ADMIT Family Medicine Adult Medicine; ATTEND Family Medicine Adult Medicine

== ENCOUNTER 2020-08-08 01:53 | Inpatient (IN) ==
[2020-08-08] MEDS ORDERED: IOPAMIDOL 100 ML BOTTLE IV ONE ×2 (01:54→17:11)
[2020-08-08] MEDS ORDERED: ONDANSETRON 4 MG/2 ML VIAL IV ONE (02:05)
--- NOTE | 2020-08-08 02:13 | Emergency Department Note ---
HPI General Chief complaint: Abdominal Pain Stated complaint: flare up of Crohn's Time Seen by Provider: 08/08/20 01:56 Source: patient Mode of arrival: ambulatory Limitations: no limitations History of Present Illness HPI Narrative: Narrative: Patient complains of sharp left-sided abdominal pain started today. Symptoms are associated with nausea. Is not been passing gas. He has a history of Crohn's. He does have prior history of small bowel obstruction. No fever. No other complaints. Related Data Home Medications Medication Instructions Recorded Confirmed aspirin 81 mg PO DAILY 05/09/16 11/27/19 citalopram 20 mg PO DAILY 05/09/16 11/27/19 diltiazem HCl 120 mg PO DAILY 05/09/16 11/27/19 methotrexate sodium 25 mg IJ WEEKLY 05/09/16 11/27/19 omeprazole 20 mg PO DAILY 05/09/16 11/27/19 primidone 100 mg PO HS 05/09/16 11/29/19 coenzyme Q10 100 mg capsule 100 mg PO QDAY 07/04/16 11/27/19 cyanocobalamin (vitamin B-12) 100 100 mcg PO QDAY 07/04/16 11/27/19 mcg tablet folic acid 1 mg tablet 1 mg PO QDAY 07/04/16 11/27/19 grape seed extract [Grape Seed] 1 tab PO QDAY 07/04/16 11/27/19 nitroglycerin 0.4 mg sublingual 0.4 mg SUBLINGUAL Q5M PRN 07/04/16 11/27/19 tablet omega-3 fatty acids 1,000 mg 1,000 mg PO QDAY 07/04/16 11/27/19 capsule carbidopa-levodopa 1 tab PO TID 02/15/19 11/27/19 pramipexole 0.125 mg PO TID 02/15/19 11/27/19 trazodone 50 mg PO HS 02/15/19 11/27/19 Previous Rx's Medication Instructions Recorded polyethylene glycol 3350 [Miralax] 17 g PO BID #510 g 11/30/19 Allergies Allergy/AdvReac Type Severity Reaction Status Date / Time No Known Drug Allergies Allergy Verified 02/15/19 02:53 Review of Systems ROS ROS Narrative: Narrative: As above, all other system reviewed and negative. PFSH Narrative Patient History Narrative: Narrative: Reviewed Medical/Surgical/Family History All Active Problems (Updated 08/08/20 @ 07:10 by Shan Tavera MD) SBO (small bowel obstruction) (Acute) Parkinsons disease (Acute) Thoracic back pain (Acute) Strain of lumbar region (Acute) Groin strain (Acute) Abdominal pain (Acute) Small bowel obstruction (Acute) Partial obstruction of small intestine (Acute) Cold intolerance (Chronic) Intention tremor (Chronic) Peripheral neuropathy (Chronic) Insomnia, unspecified (Chronic) Anxiety and depression (Chronic) Fasting hyperglycemia (Chronic) Hypercholesterolemia (Chronic) Coronary artery disease (Chronic) Crohns disease (Chronic) Urinary frequency (Chronic) Hematuria (Chronic) Dyspnea (Acute) Fall (on)(from) incline, initial encounter (Acute) Abrasion (Acute) Medical History Abrasion Anxiety and depression Cold intolerance Coronary artery disease Crohns disease Dyspnea Fall (on)(from) incline, initial encounter Fasting hyperglycemia Hematuria Hypercholesterolemia Insomnia, unspecified Intention tremor Parkinsons disease Peripheral neuropathy feet Urinary frequency Surgical History History of coronary artery bypass graft Family History Mother Cancer Father Lung cancer Brother Stroke Sister Melanoma Other Kidney stone Social History Smoking Status: Never smoker Alcohol Intake Frequency: does not drink Substance Use: does not use Exam Narrative Narrative: Narrative: General Limitations: no limitations Head Head: Present atraumatic and normocephalic Eye Eye: Present normal appearance, PERRL and EOMI ENT ENT: Present normal exam and normal oropharynx Neck Neck: Present normal inspection Respiratory Respiratory: Absent respiratory distress Adbominal Abdominal: Present soft and tenderness (Left-sided abdominal tenderness to palpation); Absent distention, guarding and rebound Extremities Extremities: Present normal inspection Neurological Neurological: Present alert, oriented X3 and CN II-XII intact; Absent motor sensory deficit Psychiatric Psychiatric: Present normal affect and normal mood Skin Skin: Present warm (WNL) and dry Course Vital Signs Vital signs: Vital Signs Temperature 98.3 F 08/08/20 01:54 Pulse Rate 86 08/08/20 01:54 Respiratory Rate 18 08/08/20 01:54 Blood Pressure 157/72 08/08/20 01:54 Pulse Oximetry (%) 96 08/08/20 01:54 Temperature 98.3 F 08/08/20 01:54 Pulse Rate 84 08/08/20 07:01 Respiratory Rate 18 08/08/20 01:54 Blood Pressure 125/57 08/08/20 07:01 Pulse Oximetry (%) 97 08/08/20 07:01 MDM MDM Narrative Medical decision making narrative: Narrative: CT abdomen pelvis is read by radiology shows distal esophagus distended and filled with fluid suggestive of gastroesophageal reflux, multiple gallstones in the gallbladder, few slightly dilated small bowel loops filled with fluid with a small bowel feces sign and mild wall thickening of the distal small bowel near the terminal ileum findings compatible with Crohn's disease and a small bowel obstruction cannot be excluded. CT is over read this morning by Dr. Mckeon showing mild partial small bowel obstruction. Patient was medicated with Tylenol and fentanyl in the emergency department on reexam he reports significant improvement in symptoms. Abdominal exam is benign without tenderness elicited on repeat exam. I spoke with the on-call hospitalist. Case reviewed in detail over the phone. Hospitalist recommended admission. Hospitalist requested IV Solu-Medrol. Discussed findings with the patient and family. Their questions were answered. They are agreeable with the plan. Lab Data Result diagrams: 08/08/20 02:20 08/08/20 02:20 Labs: Lab Results 08/08/20 08/08/20 Range/Units 02:20 02:20 WBC 11.5 H (4.5-11.0) K/mcL RBC 4.24 L (4.50-5.90) M/mcL Hgb 13.3 L (13.5-16.5) g/dL Hct 40.4 L (41.0-55.0) % POC Hct 41 (41-55) % MCV 95.3 (80.0-100.0) fL MCH 31.4 (26.0-34.0) pg MCHC 32.9 (31.0-36.0) g/dL RDW 14.7 H (11.5-14.5) % Plt Count 217 (140-440) K/mcL MPV 10.3 (7.4-10.4) fL Neut % (Auto) 86.7 H (38.0-78.0) % Lymph % (Auto) 5.9 L (15.0-49.0) % Milam % (Auto) 6.8 (1.0-12.0) % Eos % (Auto) 0.3 (0.0-7.0) % Baso % (Auto) 0.3 (0.0-2.0) % Lymph # (Auto) 0.68 L (1.50-4.80) K/mcL Milam # (Auto) 0.78 (0.10-0.90) K/mcL Eos # (Auto) 0.04 (0.00-0.70) K/mcL Baso # (Auto) 0.03 (0.00-0.20) K/mcL Absolute Neutrophils 10.00 H (1.80-8.00) K/mcL POC Sodium 143 (133-145) mEq/L Sodium 140 (133-145) mmol/L POC Potassium 4.0 (3.3-5.1) mEql/L Potassium 4.1 (3.3-5.1) mmol/L POC Chloride 107 (96-108) mEq/L Chloride 106 (96-108) mmol/L Carbon Dioxide 22 (22-30) mmol/L POC Total CO2 21 L (22-30) mmol/L Anion Gap 12.0 (8.0-16.0) POC BUN 15 (6-20) mg/dL BUN 14 (8-23) mg/dL Creatinine 1.2 (0.7-1.2) mg/dL POC Creatinine 1.3 H (0.6-1.2) mg/dL GFR Calculation 57 Glucose 120 H (70-105) mg/dL POC Glucose 126 H (70-105) mg/dL Calcium 9.1 (8.6-10.4) mg/dL POC WB Ioniz Calcium 1.15 L (1.16-1.32) mmEq/L Total Bilirubin 0.4 (0.1-1.0) mg/dL AST 17 (<40) U/L ALT 13 (<40) U/L Alkaline Phosphatase 88 (39-117) U/L Total Protein 6.6 (5.9-8.4) gm/dL Albumin 3.9 (3.2-5.2) gm/dL Globulin 2.7 (2.2-3.7) gm/dL Albumin/Globulin Ratio 1.4 (1.0-2.3) Lipase 11 (7-60) U/L Discharge Plan Patient/Caregiver Discharge Instructions Pt seen by MAGISTRATE JUDGE/PA only: No Clinical Impression: SBO (small bowel obstruction) Patient Disposition: Xfer As Inpt ([facility]) Follow up with: Tiffanie Amado MD [Primary Care Provider] - Prescriptions: No Action nitroglycerin [Nitrostat] 0.4 mg tablet, sublingual 0.4 mg SUBLINGUAL Q5M PRN (Reason: Chest Pain) RF: 0 omega-3 fatty acids [Fish Oil Concentrate] 1,000 mg capsule 1,000 mg PO QDAY RF: 0 grape seed extract 1 tab PO QDAY RF: 0 coenzyme Q10 100 mg capsule 100 mg PO QDAY RF: 0 cyanocobalamin (vitamin B-12) 100 mcg tablet 100 mcg PO QDAY RF: 0 folic acid 1 mg tablet 1 mg PO QDAY RF: 0 primidone 50 MG tablet 100 mg PO HS RF: 0 methotrexate sodium 25 MG/ML solution 25 mg IJ WEEKLY RF: 0 citalopram 20 MG tablet 20 mg PO DAILY RF: 0 omeprazole 20 MG capsule 20 mg PO DAILY RF: 0 aspirin 81 MG tablet,chewable 81 mg PO DAILY RF: 0 diltiazem HCl 120 MG capsule,extended release 24hr 120 mg PO DAILY RF: 0 trazodone 50 MG tablet 50 mg PO HS RF: 0 pramipexole 0.25 MG tablet 0.125 mg PO TID RF: 0 carbidopa-levodopa 1 EACH tablet 1 tab PO TID RF: 0 polyethylene glycol 3350 [Miralax] 17 gram/dose powder 17 g PO BID Qty: 510 RF: 3
[2020-08-08 02:34] LABS: POC Blood Urea Nitrogen 15 mg/dL (6-20); POC CO2 21 mmol/L (22-30); POC Calcium, Ionized 1.15 mmEq/L (1.16-1.32); POC Chloride 107 mEq/L (96-108); POC Creatinine 1.3 mg/dL (0.6-1.2); POC Glucose, Random 126 mg/dL (70-105); POC Hematocrit 41 % (41-55); POC Sodium 143 mEq/L (133-145)
[2020-08-08 03:04] LABS: Basophils # (Auto) 0.03 K/mcL (0.00-0.20); Basophils % (Auto) 0.3 % (0.0-2.0); Eosinophils # (Auto) 0.04 K/mcL (0.00-0.70); Eosinophils % (Auto) 0.3 % (0.0-7.0); Hematocrit 40.4 % (41.0-55.0); Hemoglobin 13.3 g/dL (13.5-16.5); Lymphocytes # (Auto) 0.68 K/mcL (1.50-4.80); Lymphocytes % (Auto) 5.9 % (15.0-49.0); Mean Cell Volume 95.3 fL (80.0-100.0); Mean Corpuscular HGB Conc 32.9 g/dL (31.0-36.0); Mean Platelet Volume 10.3 fL (7.4-10.4); Monocytes # (Auto) 0.78 K/mcL (0.10-0.90); Monocytes % (Auto) 6.8 % (1.0-12.0); Neutrophils % (Auto) 86.7 % (38.0-78.0); Platelet Count 217 K/mcL (140-440); RBC 4.24 M/mcL (4.50-5.90); Red Cell Distribution Width 14.7 % (11.5-14.5); WBC 11.5 K/mcL (4.5-11.0)
[2020-08-08] MEDS ORDERED: fentaNYL 100 MCG/2 ML VIAL IV ONE (03:19)
[2020-08-08 03:24] LABS: ALT/SGPT 13 U/L (<40); AST/SGOT 17 U/L (<40); Albumin 3.9 gm/dL (3.2-5.2); Albumin/Globulin Ratio 1.4 (1.0-2.3); Alkaline Phosphatase 88 U/L (39-117); Bilirubin,Total 0.4 mg/dL (0.1-1.0); Blood Urea Nitrogen 14 mg/dL (8-23); Calcium 9.1 mg/dL (8.6-10.4); Carbon Dioxide 22 mmol/L (22-30); Chloride 106 mmol/L (96-108); Globulin 2.7 gm/dL (2.2-3.7); Glomerular Filtration Rate 57; Glucose 120 mg/dL (70-105)
[2020-08-08] MEDS ORDERED: methylPREDNISolone SOD SUCC 125 MG/2 ML VIAL IV ONE (07:01)
[2020-08-08] MEDS ORDERED: ONDANSETRON 4 MG/2 ML VIAL IV PRN ×3 (07:05→17:11)
[2020-08-08] MEDS ORDERED: ACETAMINOPHEN 325 MG TABLET PO PRN ×3 (07:05→17:11)
[2020-08-08] MEDS: 0.9 % SODIUM CHLORIDE 1,000 ML IV SCH ×5 (07:59→22:00)
[2020-08-08] MEDS ORDERED: morphine 4 MG/ML VIAL IV ONE (08:01)
--- NOTE | 2020-08-08 08:04 | Cat Scan Report ---
CLINICAL INFORMATION: Left abdominal pain. History of Crohn's disease COMPARISON: Abdomen and pelvic CT 02/15/2019 TECHNIQUE: Following enteric contrast, 80 cc of Isovue-370 were injected intravenously, and 60 seconds later, 0.625 mm helical slices were obtained from the mid heart through the subtrochanteric regions. Following reconstruction, 2.5 mm sagittal, coronal and axial reformatted images were processed and reviewed at bone, lung and soft tissue windows. Five minutes later, 0.625 mm helical slices were obtained from the mid heart through the kidneys and viewed at soft tissue windows.The exam was performed using radiation dose optimization techniques including, but not limited to, automated exposure control, adjustment of the mA and/or kV according to patient size and use of iterative reconstruction technique. FINDINGS: Lung bases show minimal atelectasis in the posterior lower lobe regions. No infiltrates or effusions. The heart is mildly enlarged with atherosclerotic calcifications in the visualized coronary arteries. There is also calcifications in the mitral valve. Moderate hiatal hernia again noted. Abdominal images show multiple small stones layering dependently within the gallbladder neck. Gallbladder is, otherwise, normal: no wall thickening or pericholecystic fluid to support cholecystitis. Intrahepatic, common hepatic and common bile ducts are normal caliber: CBD is 5 mm. Few small simple hepatic cysts, ranging up to 10 mm in the posterior segment right hepatic lobe are unchanged. No significant hepatic abnormality. The pancreas, both adrenal glands, and spleen are normal in size, configuration and attenuation without focal lesion. 16 mm simple cyst seen superior pole the left kidney. The abdominal aorta is normal diameter with very heavy calcific plaque in both proximal renal, celiac and SMA arteries. Nonobstructing stones again seen in the calyces of the right kidney: 7 mm inferior calyx, 2 mm superior calyx and 2 mm mid calyx. There are no obstructing stones or hydronephrosis. No free air or adenopathy. Pelvic images show moderate prostate enlargement 4.1 x 4.5 cm with central prostatic calcification. Mild diffuse wall thickening of the urinary bladder suggests chronic bladder outlet narrowing. Moderate thickening of the wall and plicae circulares folds of the distal 15 cm of the ileum has progressed from the comparison CT 1.5 years ago. In addition, there is less mucosal enhancement today than on the previous study which suggests evolution from an inflammatory to fibrostenosing Crohn's disease Crohn's disease. It results in partial small bowel obstruction with mild dilatation of the ileum proximal to this region.. The remainder of the small and large bowel appear unremarkable. Small amount of free fluid is noted in the mesentery. Bone windows show a 3 cm region of patchy sclerosis and radiolucency in the right femoral head which has been stable since the plain film over 11 years ago 03/01/2009. Stability would imply a focus of atypical sclerotic degeneration rather than avascular necrosis. A 17 mm region of sclerosis in the left femoral head also demonstrate long-term stability. Multiple compression fractures of the thoracic and lumbar spine are stable from the previous exam. The most severe is at T12 which been treated with vertebroplasty. There appears to be diffuse osteoporosis. IMPRESSION: 1. Chronic Crohn's terminal ileitis featuring thickening of the wall and plicae circulares folds resulting in partial small bowel obstruction. This has progressed from the comparison CT 1.5 years ago. It has likely evolved from inflammatory to fibrostenosing Crohn's disease which may be refractory to anti-inflammatory medical treatment. No other Crohn's manifestation within the small or large bowel. 2. Cholelithiasis 3. Moderate hiatal hernia 4. Very heavy calcific plaque in both proximal renal arteries. Significant stenoses are suspected, but cannot be diagnosed due to beam hardening artifact from the calcifications. There is also heavy calcification of the celiac and SMA artery origins which may indicate significant stenoses. Consider abdominal aortic MRA to evaluate these aortic branches 5. Moderate prostate enlargement resulting in chronic bladder outlet narrowing with mild wall thickening urinary bladder. Slight progression from the previous study. 6. 4-5 nonobstructing stones in the calyces of the right kidney ranging up to 6 mm in inferior calyx right kidney. 7. Multiple lumbar compression fractures including a severe T12 compression fracture which was treated with vertebroplasty. No change from previous exam. Osteoporosis is suspected. Consider DEXA scan Interpreted and Authenticated by: Maxwell Mckeon 08/08/20
[2020-08-08] MEDS: PROCHLORPERAZINE 10 MG/2 ML VIAL IV ONE ×2 (08:15→10:02)
--- NOTE | 2020-08-08 09:39 | Internal Med History&Physical ---
HPI History of Present Illness Patient information: Note initiated : 08/08/20 at 9:38 am Service Date, if different from initiated Date: Patient: Scooter Maria a 80 y/o M admitted on 08/08/20 for flare up of Crohn's. Chief Complaint: Abdominal pain History of present illness: Mr. Maria is a pleasant 80 years old male with past medical history significant for Crohn's disease which is well controlled came to emergency room with complaint of abdominal pain for 1 day. Patient pain started yesterday. It was lower abdomen cramping. It was associated with nausea and he vomited once. His last bowel movement was Sunday which is 48 hours ago. Curr ently he does not pass flatus. Patient does not have nausea. Patient has no previous history of small bowel obstruction, abdominal surgery, toxic megacolon or any complication regarding Crohn's disease. In the emergency room CT scan of abdomen and pelvis was done which showed Chronic Crohn's terminal ileitis /thickening of the wall and plicae circulares folds resulting in partial small bowel obstruction. The patient denies fever chills diarrhea, hematochezia, dizziness chest pain shortness of breath. Patient admitted for further management. Review of Systems All systems: reviewed and no additional remarkable complaints except as stated PFSH PFSH All Active Problems SBO (small bowel obstruction) (Acute) Parkinsons disease (Acute) Thoracic back pain (Acute) Strain of lumbar region (Acute) Groin strain (Acute) Abdominal pain (Acute) Small bowel obstruction (Acute) Partial obstruction of small intestine (Acute) Cold intolerance (Chronic) Intention tremor (Chronic) Peripheral neuropathy (Chronic) Insomnia, unspecified (Chronic) Anxiety and depression (Chronic) Fasting hyperglycemia (Chronic) Hypercholesterolemia (Chronic) Coronary artery disease (Chronic) Crohns disease (Chronic) Urinary frequency (Chronic) Hematuria (Chronic) Dyspnea (Acute) Fall (on)(from) incline, initial encounter (Acute) Abrasion (Acute) Medical History Abrasion Anxiety and depression Cold intolerance Coronary artery disease Crohns disease Dyspnea Fall (on)(from) incline, initial encounter Fasting hyperglycemia Hematuria Hypercholesterolemia Insomnia, unspecified Intention tremor Parkinsons disease Peripheral neuropathy feet Urinary frequency Surgical History History of coronary artery bypass graft Family History Mother Cancer Father Lung cancer Brother Stroke Sister Melanoma Other Kidney stone Social History marital status: alcohol intake frequency: does not drink substance use type: does not use MEDS/ALLERGIES Home Medications and Allergies Home Medications Medication Instructions Recorded Confirmed Type aspirin 81 mg PO DAILY 05/09/16 08/08/20 History citalopram 20 mg PO DAILY 05/09/16 08/08/20 History diltiazem HCl 120 mg PO DAILY 05/09/16 08/08/20 History methotrexate sodium 25 mg IJ WEEKLY 05/09/16 08/08/20 History omeprazole 20 mg PO DAILY 05/09/16 08/08/20 History primidone 100 mg PO HS 05/09/16 08/08/20 History coenzyme Q10 100 mg capsule 100 mg PO QDAY 07/04/16 08/08/20 History cyanocobalamin (vitamin B-12) 100 100 mcg PO QDAY 07/04/16 08/08/20 History mcg tablet folic acid 1 mg tablet 1 mg PO QDAY 07/04/16 08/08/20 History grape seed extract [Grape Seed] 1 tab PO QDAY 07/04/16 08/08/20 History nitroglycerin 0.4 mg sublingual 0.4 mg SUBLINGUAL Q5M PRN 07/04/16 08/08/20 History tablet omega-3 fatty acids 1,000 mg 1,000 mg PO QDAY 07/04/16 08/08/20 History capsule carbidopa-levodopa 1 tab PO TID 02/15/19 08/08/20 History pramipexole 0.125 mg PO TID 02/15/19 08/08/20 History trazodone 50 mg PO HS 02/15/19 08/08/20 History polyethylene glycol 3350 [Miralax] 17 g PO BID #510 g 11/30/19 08/08/20 Rx Allergies Allergy/AdvReac Type Severity Reaction Status Date / Time No Known Drug Allergies Allergy Verified 02/15/19 02:53 EXAM Constitutional Vitals: Temp Pulse Resp BP Pulse Ox 97.3 F 120 H 18 137/70 92 08/08/20 09:31 08/08/20 09:31 08/08/20 09:31 08/08/20 09:31 08/08/20 09:31 General appearance: average body habitus (Well-developed well-nourished pleasant 80 years old male in no distress), cooperative and no acute distress Head Head exam: Present atraumatic, normal inspection and normocephalic Eye Eye exam: Present EOMI, normal appearance and PERRL Neck Neck exam: Present full ROM and normal inspection Respiratory Respiratory exam: Present normal respiratory exam and CTAB Cardiovascular Cardiovascular exam: Present normal rate and rhythm, +S1 and +S2; Absent diastolic murmur and systolic murmur GI/Abdominal GI/Abdominal exam: Present normal bowel sounds and soft; Absent hernia, mass, rebound and tenderness Additional comments: Abdomen is soft nontender. Positive bowel sounds. No hepatosplenomegaly. No rebound tenderness. No CVA tenderness. Extremities Exam Extremities exam: Present full ROM, normal capillary refill and normal inspection; Absent calf tenderness and joint swelling Back Exam Back exam: Present full ROM Neurological Exam Neurological exam: Present alert, CN II-XII intact, oriented X3 and reflexes normal Psychiatric Psychiatric exam: Present normal affect and normal mood Skin Skin exam: Present dry, normal color and warm DATA Data Completed and Pending Labs: Labs from last 24 hours 08/08/20 08/08/20 02:20 02:20 WBC 11.5 H RBC 4.24 L Hgb 13.3 L Hct 40.4 L POC Hct 41 MCV 95.3 MCH 31.4 MCHC 32.9 RDW 14.7 H Plt Count 217 MPV 10.3 Neut % (Auto) 86.7 H Lymph % (Auto) 5.9 L [place] % (Auto) 6.8 Eos % (Auto) 0.3 Baso % (Auto) 0.3 Lymph # (Auto) 0.68 L [place] # (Auto) 0.78 Eos # (Auto) 0.04 Baso # (Auto) 0.03 Absolute Neutrophils 10.00 H POC Sodium 143 Sodium 140 POC Potassium 4.0 Potassium 4.1 POC Chloride 107 Chloride 106 Carbon Dioxide 22 POC Total CO2 21 L Anion Gap 12.0 POC BUN 15 BUN 14 Creatinine 1.2 POC Creatinine 1.3 H GFR Calculation 57 Glucose 120 H POC Glucose 126 H Calcium 9.1 POC WB Ioniz Calcium 1.15 L Total Bilirubin 0.4 AST 17 ALT 13 Alkaline Phosphatase 88 Total Protein 6.6 Albumin 3.9 Globulin 2.7 Albumin/Globulin Ratio 1.4 Lipase 11 A/P Narrative A/P Narrative: 80 years old pleasant male with history of Crohn's over 15 years presented with the following problem list: #Abdominal pain nausea and vomiting X1. #Partial small bowel obstruction -Abdominal exam is unremarkable. Last BM was 48 hours ago and currently he does not pass flatus. No active nausea and vomiting. -CT abdomen/pelvic Chronic Crohn's terminal ileitis/ thickening of wall and plicae circulares folds resulting in partial small bowel obstruction. -Unlikely Crohn's flareup however due to obstruction I will start short course of steroid -Start clear liquid. Continue IV fluid, serial abdominal exam and follow labs #Parkinson disease. -Resume home medication #History of coronary artery disease with no evidence of ACS. -Resume home aspirin and Cardizem. DVT PPX: Lovenox 40mg daily Code Status : Full code Disposition: Observation Plan of care discussed with patient and RN Time Spent With Patient Time: Total time spent is greater than 50% in coordination of care (as documented) at patient's floor/unit and/or counseling patient:
[2020-08-08] MEDS ORDERED: HYDROmorphone 1 MG/ML SYRINGE IV PRN ×3 (11:26→17:11)
[2020-08-08] MEDS ORDERED: ONDANSETRON 4 MG ODT TABLET SL PRN ×2 (11:27→17:11)
[2020-08-08] MEDS ORDERED: oxyCODONE HCL 5 MG TABLET PO PRN ×2 (11:27→17:11)
[2020-08-08] MEDS ORDERED: METHOTREXATE SODIUM 25 MG/ML IJ SCH (11:30)
[2020-08-08] MEDS ORDERED: ENOXAPARIN 40 MG/0.4 ML SYRINGE SQ SCH (11:30)
[2020-08-08] MEDS ORDERED: ASPIRIN 81 MG TAB.CHEW PO SCH (11:35)
[2020-08-08] MEDS ORDERED: FOLIC ACID 1 MG TABLET PO SCH (11:35)
[2020-08-08] MEDS ORDERED: CITALOPRAM 20 MG TABLET PO SCH (11:35)
[2020-08-08] MEDS ORDERED: DILTIAZEM 120 MG CAP.XL.24H PO SCH (11:35)
[2020-08-08] MEDS ORDERED: 0.9 % SODIUM CHLORIDE 10 ML SYRINGE IV SCH (14:00)
[2020-08-08] MEDS ORDERED: CARBIDOPA/LEVODOPA 25/100 TABLET PO SCH (15:00)
[2020-08-08] MEDS ORDERED: PRAMIPEXOLE 0.25 MG TABLET PO SCH (15:20)
[2020-08-08] MEDS ORDERED: methylPREDNISolone SOD SUCC 40 MG/ML VIAL IV SCH (15:40)
[2020-08-08] MEDS: CARBIDOPA/LEVODOPA 25/100 TABLET PO SCH (20:53)
[2020-08-08] MEDS: 0.9 % SODIUM CHLORIDE 10 ML SYRINGE IV SCH (20:53)
[2020-08-08] MEDS: PRAMIPEXOLE 0.25 MG TABLET PO SCH (20:53)
[2020-08-08] MEDS ORDERED: traZODone HCL 50 MG TABLET PO SCH ×2 (21:00)
[2020-08-08] MEDS ORDERED: PRIMIDONE 50 MG TABLET PO SCH ×2 (21:00)
[2020-08-08] MEDS: methylPREDNISolone SOD SUCC 40 MG/ML VIAL IV SCH (22:00)
[2020-08-09] MEDS: 0.9 % SODIUM CHLORIDE 1,000 ML IV SCH ×4 (03:02→13:32)
[2020-08-09] MEDS: 0.9 % SODIUM CHLORIDE 10 ML SYRINGE IV SCH ×2 (05:50→14:01)
[2020-08-09] MEDS: methylPREDNISolone SOD SUCC 40 MG/ML VIAL IV SCH ×2 (06:03→13:37)
[2020-08-09 06:27] LABS: Basophils # (Auto) 0.01 K/mcL (0.00-0.20); Basophils % (Auto) 0.1 % (0.0-2.0); Eosinophils # (Auto) 0 K/mcL (0.00-0.70); Eosinophils % (Auto) 0 % (0.0-7.0); Hemoglobin 11.8 g/dL (13.5-16.5); Lymphocytes # (Auto) 0.48 K/mcL (1.50-4.80); Lymphocytes % (Auto) 4.2 % (15.0-49.0); Mean Cell Volume 100.3 fL (80.0-100.0); Mean Corpuscular HGB Conc 31.1 g/dL (31.0-36.0); Mean Platelet Volume 10.2 fL (7.4-10.4); Monocytes # (Auto) 0.41 K/mcL (0.10-0.90); Monocytes % (Auto) 3.6 % (1.0-12.0); Neutrophils % (Auto) 92.1 % (38.0-78.0); Platelet Count 190 K/mcL (140-440); RBC 3.79 M/mcL (4.50-5.90); Red Cell Distribution Width 14.6 % (11.5-14.5); WBC 11.3 K/mcL (4.5-11.0)
[2020-08-09 07:09] LABS: ALT/SGPT < 5 U/L (<40); AST/SGOT 16 U/L (<40); Albumin 3.5 gm/dL (3.2-5.2); Albumin/Globulin Ratio 1.8 (1.0-2.3); Alkaline Phosphatase 68 U/L (39-117); Bilirubin,Total 0.5 mg/dL (0.1-1.0); Blood Urea Nitrogen 15 mg/dL (8-23); Calcium 8.1 mg/dL (8.6-10.4); Carbon Dioxide 21 mmol/L (22-30); Chloride 106 mmol/L (96-108); Globulin 1.9 gm/dL (2.2-3.7); Glomerular Filtration Rate 81; Glucose 140 mg/dL (70-105)
[2020-08-09] MEDS ORDERED: OMEPRAZOLE 20 MG CAPSULE PO SCH ×2 (07:30)
[2020-08-09] MEDS: PRAMIPEXOLE 0.25 MG TABLET PO SCH ×2 (07:59→14:38)
[2020-08-09] MEDS: CARBIDOPA/LEVODOPA 25/100 TABLET PO SCH ×2 (08:00→14:38)
[2020-08-09] MEDS ORDERED: ASPIRIN 81 MG TAB.CHEW PO SCH (09:00)
[2020-08-09] MEDS ORDERED: ENOXAPARIN 40 MG/0.4 ML SYRINGE SQ SCH (09:00)
[2020-08-09] MEDS ORDERED: FOLIC ACID 1 MG TABLET PO SCH (09:00)
[2020-08-09] MEDS ORDERED: CITALOPRAM 20 MG TABLET PO SCH (09:00)
[2020-08-09] MEDS ORDERED: DILTIAZEM 120 MG CAP.XL.24H PO SCH (09:00)
--- NOTE | 2020-08-09 09:59 | Internal Med Progress Note ---
SUBJECTIVE Subjective Patient information: Note initiated : 08/09/20 at 9:56 am Service Date, if different from initiated Date: Patient: Scooter Maria 80 y/o M admitted on 08/08/20 for flare up of Crohn's. Chief Complaint: Abdominal pain Principal diagnosis: Abdominal pain Interval history: Patient is feeling better. No abdominal pain nausea vomiting. No BM yet. He is passing flatus. He is on clear liquids with good tolerance. Constitutional Vitals: Vital Signs Temp Pulse Resp BP Pulse Ox 97.5 F 64 20 115/57 94 08/09/20 08:00 08/09/20 08:00 08/09/20 08:00 08/09/20 08:00 08/09/20 08:00 Period Temp Pulse Resp BP Sys/[place] Pulse Ox Last 24 Hr 97.0 F-98.0 F 64-90 16-20 115-136/56-74 91-94 Intake and Output 08/08/20 08/09/20 08/09/20 21:59 05:59 13:59 Intake Total 227 735 2929 Output Total 325 375 Balance 533 -275 1000 Weight 78.608 kg 84.277 kg Intake & Output: Intake & Output 08/08/20 08/09/20 08/09/20 21:59 05:59 13:59 Intake Total 842 189 6389 Output Total 325 375 Balance 533 -275 1000 Weight 78.608 kg 84.277 kg Intake: IV 608 1000 Sodium Chloride 0.9% 1,000 ml @ 608 1000 125 mls/hr IV .Q8H [facility] Rx#: [id number] Oral 250 100 Output: Void Amount 325 375 Other: Meal Dinner Percent of Meal Consumed 75% Feeding Ability Independent Urine Appearance Clear Clear Urine Color Bright Yellow Bright Yellow # Voids 1 Additional findings Additional findings: General: Awake alert oriented x3. No apparent distress HEENT: PERRLA, moist mucous membrane. Anicteric sclera Lungs: Clear to auscultation bilaterally. No crackles rhonchi or rales. Cardiovascular: Regular rate and rhythm. S1 + S2, no murmur gallop rub. No peripheral edema. No JVD GI: Abdomen soft, nontender, positive bowel sounds. No hepatosplenomegaly. No rebound tenderness. No CVA tenderness [employer]: Awake alert oriented x3. Cranial nerves II through XII 12 grossly intact. Psychiatric: Normal mood and affect OBJ DATA Labs CBC & Chem 7: 08/09/20 05:11 08/09/20 05:11 Labs: Abnormal Lab Results 08/09/20 08/09/20 08/08/20 05:11 05:11 02:20 WBC 11.3 H RBC 3.79 L Hgb 11.8 L Hct 38.0 L MCV 100.3 H RDW 14.6 H Neut % (Auto) 92.1 H Lymph % (Auto) 4.2 L Lymph # (Auto) 0.48 L Absolute Neutrophils 10.43 H Carbon Dioxide 21 L POC Total CO2 21 L POC Creatinine 1.3 H Glucose 140 H 120 H POC Glucose 126 H Calcium 8.1 L POC WB Ioniz Calcium 1.15 L Total Protein 5.4 L Globulin 1.9 L 08/08/20 02:20 WBC 11.5 H RBC 4.24 L Hgb 13.3 L Hct 40.4 L MCV RDW 14.7 H Neut % (Auto) 86.7 H Lymph % (Auto) 5.9 L Lymph # (Auto) 0.68 L Absolute Neutrophils 10.00 H Carbon Dioxide POC Total CO2 POC Creatinine Glucose POC Glucose Calcium POC WB Ioniz Calcium Total Protein Globulin Meds: Medications Acetaminophen (Acetaminophen 325 Mg Tablet) 650 mg PO Q6HP PRN; Protocol PRN Reason: Per Pain Protocol/Fever > 101 Aspirin (Aspirin 81 Mg Tab.Chew) 81 mg PO DAILY [facility] Last Admin: 08/09/20 07:59 Dose: 81 mg Documented by: Carbidopa/Levodopa (Carbidopa/Levodopa 25/100 Tablet) 1 tab PO TID [facility] Last Admin: 08/09/20 08:00 Dose: 1 tab Documented by: Citalopram Hydrobromide (Citalopram 20 Mg Tablet) 20 mg PO DAILY [facility] Last Admin: 08/09/20 08:00 Dose: 20 mg Documented by: Diltiazem HCl (Diltiazem 120 Mg Cap.Xl.24h) 120 mg PO DAILY [facility] Last Admin: 08/09/20 08:05 Dose: 120 mg Documented by: Enoxaparin Sodium (Enoxaparin 40 Mg/0.4 Ml Syringe) 40 mg SQ DAILY [facility] Last Admin: 08/09/20 08:00 Dose: 40 mg Documented by: Folic Acid (Folic Acid 1 Mg Tablet) 1 mg PO QDAY [facility] Last Admin: 08/09/20 08:00 Dose: 1 mg Documented by: Hydromorphone HCl (Hydromorphone 1 Mg/Ml Syringe) 1 mg IV Q4HP PRN; Protocol PRN Reason: Per Pain Protocol Sodium Chloride (Sodium Chloride 0.9%) 1,000 mls @ 125 mls/hr IV .Q8H [facility] Last Admin: 08/09/20 08:52 Dose: Not Given Documented by: Methylprednisolone Sodium Succinate (Methylprednisolone Sod Succ 40 Mg/Ml Vial) 60 mg IV Q8 [facility] Last Admin: 08/09/20 06:03 Dose: 60 mg Documented by: Omeprazole (Omeprazole 20 Mg Capsule) 20 mg PO ACB [facility] Last Admin: 08/09/20 07:59 Dose: 20 mg Documented by: Ondansetron HCl (Ondansetron 4 Mg Odt Tablet) 4 mg SL Q6HP PRN PRN Reason: Nausea And Vomiting Ondansetron HCl (Ondansetron 4 Mg/2 Ml Vial) 4 mg IV Q6HP PRN PRN Reason: Nausea And Vomiting Oxycodone HCl (Oxycodone Hcl 5 Mg Tablet) 5 mg PO Q4HP PRN; Protocol PRN Reason: Per Pain Protocol Pramipexole Dihydrochloride (Pramipexole 0.25 Mg Tablet) 0.125 mg PO TID [facility] Last Admin: 08/09/20 07:59 Dose: 0.125 mg Documented by: Primidone (Primidone 50 Mg Tablet) 100 mg PO [facility] Last Admin: 08/08/20 20:53 Dose: 100 mg Documented by: Sodium Chloride (0.9 % Sodium Chloride 10 Ml Syringe) 10 ml IV Q8 [facility] Last Admin: 08/09/20 05:50 Dose: Not Given Documented by: Trazodone HCl (Trazodone Hcl 50 Mg Tablet) 50 mg PO [facility] Last Admin: 08/08/20 20:53 Dose: 50 mg Documented by: A/P Narrative A/P Narrative: 80 years old pleasant male with history of Crohn's over 15 years presented with the following problem list: #Abdominal pain nausea and vomiting X1. #Partial small bowel obstruction -Abdominal exam is unremarkable. Last BM was 48 hours before admission and currently he passes flatus. No active nausea and vomiting. -CT abdomen/pelvic Chronic Crohn's terminal ileitis/ thickening of wall and plicae circulares folds resulting in partial small bowel obstruction. -Unlikely Crohn's flareup however due to obstruction I started him on IV steroid -Advance diet to regular,. Continue IV fluid, serial abdominal exam and follow labs -If patient tolerates regular diet and have bowel movement can be discharged home likely within 24 hours. Tapering dose of steroids and outpatient follow-up with PCP/GI #Parkinson disease. -Resumed home medication #History of coronary artery disease with no evidence of ACS. -Resumed home aspirin and Cardizem. DVT PPX: Lovenox 40mg daily Code Status : Full code Disposition: Inpatient. If tolerating regular diet and have bowel movement can be discharged home in the morning. Plan of care discussed with patient and RN Time Spent With Patient Time: Total time spent is greater than 50% in coordination of care (as documented) at patient's floor/unit and/or counseling patient: QUALITY VTE Deep Vein Thrombosis/Pulmonary Embolism Present on Admission: No
--- NOTE | 2020-08-09 14:17 | Internal Med Progress Note ---
SUBJECTIVE Subjective Patient information: Note initiated : 08/09/20 at 2:12 pm Service Date, if different from initiated Date: [] Patient: Scooter Maria 80 y/o M admitted on 08/08/20 for flare up of Crohn's. Chief Complaint: [] Principal diagnosis: Abdominal pain Interval history: History of present illness: Mr. Maria is a pleasant 80 years old male with past medical history significant for Crohn's disease which is well controlled came to emergency room with complaint of abdominal pain for 1 day. Patient pain started yesterday. It was lower abdomen cramping. It was associated with nausea and he vomited once. His last bowel movement was Sunday which is 48 hours ago. Currently he does not pass flatus. Patient does not have nausea. Patient has no previous history of small bowel obstruction, abdominal surgery, toxic megacolon or any complication regarding Crohn's disease. In the emergency room CT scan of abdomen and pelvis was done which showed Chronic Crohn's terminal ileitis /thickening of the wall and plicae circulares folds resulting in partial small bowel obstruction. The patient denies fever chills diarrhea, hematochezia, dizziness chest pain shortness of breath. Patient admitted for further management. 08/09 Patient is feeling better. No abdominal pain nausea vomiting. No BM yet. He is passing flatus. He is on clear liquids with good tolerance. Constitutional Vitals: Vital Signs Temp Pulse Resp BP Pulse Ox 97.6 F 65 20 113/51 94 08/09/20 12:00 08/09/20 12:00 08/09/20 12:00 08/09/20 12:00 08/09/20 12:00 Period Temp Pulse Resp BP Sys/[place] Pulse Ox Last 24 Hr 97.0 F-98.0 F 64-83 16-20 113-136/51-74 91-94 Intake and Output 08/09/20 08/09/20 08/09/20 05:59 13:59 21:59 Intake Total 100 3175 Output Total 375 200 Balance -275 2975 Weight 84.277 kg Intake & Output: Intake & Output 08/09/20 08/09/20 08/09/20 05:59 13:59 21:59 Intake Total 100 3175 Output Total 375 200 Balance -275 2975 Weight 84.277 kg Intake: IV 2935 Sodium Chloride 0.9% 1,000 ml @ 2935 125 mls/hr IV .Q8H [facility] Rx#: [id number] Oral 100 240 Output: Void Amount 375 200 Other: Meal Lunch Percent of Meal Consumed 100% Feeding Ability Assist with Tray Set Up Urine Appearance Clear Urine Color Bright Yellow Dark Yellow Urine Odor Normal Exam: General: Alert, Awake, No acute Distress Eyes/N/T: EOMI, Head/Neck: neck supple, CV: RRR, No murmurs, Pulm: Clear b/l, no wheezing/rhonchi/rales Abd: soft, nontender, +BS x4 Ext: no clubbing/cyanosis/edema Neuro: Alert, no focal deficits, moves all extremities, Skin: warm/dry OBJ DATA Labs CBC & Chem 7: 08/09/20 05:11 08/09/20 05:11 Labs: Abnormal Lab Results 08/09/20 08/09/20 08/08/20 05:11 05:11 02:20 WBC 11.3 H RBC 3.79 L Hgb 11.8 L Hct 38.0 L MCV 100.3 H RDW 14.6 H Neut % (Auto) 92.1 H Lymph % (Auto) 4.2 L Lymph # (Auto) 0.48 L Absolute Neutrophils 10.43 H Carbon Dioxide 21 L POC Total CO2 21 L POC Creatinine 1.3 H Glucose 140 H 120 H POC Glucose 126 H Calcium 8.1 L POC WB Ioniz Calcium 1.15 L Total Protein 5.4 L Globulin 1.9 L 08/08/20 02:20 WBC 11.5 H RBC 4.24 L Hgb 13.3 L Hct 40.4 L MCV RDW 14.7 H Neut % (Auto) 86.7 H Lymph % (Auto) 5.9 L Lymph # (Auto) 0.68 L Absolute Neutrophils 10.00 H Carbon Dioxide POC Total CO2 POC Creatinine Glucose POC Glucose Calcium POC WB Ioniz Calcium Total Protein Globulin Meds: Medications Acetaminophen (Acetaminophen 325 Mg Tablet) 650 mg PO Q6HP PRN; Protocol PRN Reason: Per Pain Protocol/Fever > 101 Aspirin (Aspirin 81 Mg Tab.Chew) 81 mg PO DAILY [facility] Last Admin: 08/09/20 07:59 Dose: 81 mg Documented by: Carbidopa/Levodopa (Carbidopa/Levodopa 25/100 Tablet) 1 tab PO TID [facility] Last Admin: 08/09/20 08:00 Dose: 1 tab Documented by: Citalopram Hydrobromide (Citalopram 20 Mg Tablet) 20 mg PO DAILY [facility] Last Admin: 08/09/20 08:00 Dose: 20 mg Documented by: Diltiazem HCl (Diltiazem 120 Mg Cap.Xl.24h) 120 mg PO DAILY [facility] Last Admin: 08/09/20 08:05 Dose: 120 mg Documented by: Enoxaparin Sodium (Enoxaparin 40 Mg/0.4 Ml Syringe) 40 mg SQ DAILY [facility] Last Admin: 08/09/20 08:00 Dose: 40 mg Documented by: Folic Acid (Folic Acid 1 Mg Tablet) 1 mg PO QDAY [facility] Last Admin: 08/09/20 08:00 Dose: 1 mg Documented by: Hydromorphone HCl (Hydromorphone 1 Mg/Ml Syringe) 1 mg IV Q4HP PRN; Protocol PRN Reason: Per Pain Protocol Sodium Chloride (Sodium Chloride 0.9%) 1,000 mls @ 125 mls/hr IV .Q8H [facility] Last Admin: 08/09/20 13:32 Dose: 125 mls/hr Documented by: Methylprednisolone Sodium Succinate (Methylprednisolone Sod Succ 40 Mg/Ml Vial) 60 mg IV Q8 [facility] Last Admin: 08/09/20 13:37 Dose: 60 mg Documented by: Omeprazole (Omeprazole 20 Mg Capsule) 20 mg PO ACB [facility] Last Admin: 08/09/20 07:59 Dose: 20 mg Documented by: Ondansetron HCl (Ondansetron 4 Mg Odt Tablet) 4 mg SL Q6HP PRN PRN Reason: Nausea And Vomiting Ondansetron HCl (Ondansetron 4 Mg/2 Ml Vial) 4 mg IV Q6HP PRN PRN Reason: Nausea And Vomiting Oxycodone HCl (Oxycodone Hcl 5 Mg Tablet) 5 mg PO Q4HP PRN; Protocol PRN Reason: Per Pain Protocol Pramipexole Dihydrochloride (Pramipexole 0.25 Mg Tablet) 0.125 mg PO TID [facility] Last Admin: 08/09/20 07:59 Dose: 0.125 mg Documented by: Primidone (Primidone 50 Mg Tablet) 100 mg PO HS [facility] Last Admin: 08/08/20 20:53 Dose: 100 mg Documented by: Sodium Chloride (0.9 % Sodium Chloride 10 Ml Syringe) 10 ml IV Q8 [facility] Last Admin: 08/09/20 14:01 Dose: Not Given Documented by: Trazodone HCl (Trazodone Hcl 50 Mg Tablet) 50 mg PO HS [facility] Last Admin: 08/08/20 20:53 Dose: 50 mg Documented by: A/P Narrative A/P Narrative: A: #Abdominal pain/nausea/vomitin/2 pSBO #Partial small bowel obstruction: -Abdominal exam is unremarkable. Last BM was 48 hours before admission and currently he passes flatus -CT abdomen/pelvic Chronic Crohn's terminal ileitis/ thickening of wall and plicae circulares folds resulting in partial small bowel obstruction. -Unlikely Crohn's flareup however due to obstruction I started him on IV steroid -Advance diet to regular,. Continue IV fluid, serial abdominal exam and follow labs -If patient tolerates regular diet and have bowel movement can be discharged home likely tomorrow #Parkinson disease: Resumed home medication #h/o CAD: Resumed home aspirin and Cardizem. DVT PPX: Lovenox 40mg daily Code Status : Full code Time Spent With Patient Time: Total time spent is greater than 50% in coordination of care (as documented) at patient's floor/unit and/or counseling patient: QUALITY VTE Deep Vein Thrombosis/Pulmonary Embolism Present on Admission: No
--- NOTE | 2020-08-09 14:17 | Discharge Summary ---
Discharge Provider Provider Patient information: Note initiated : 08/09/20 at 2:17 pm Service Date, if different from initiated Date: [] Patient: Scooter Maria 80 y/o M admitted on 08/08/20 for flare up of Crohn's. Chief Complaint: [] Date of admission: 08/08/20 09:20 Discharge date: 08/09/20 Primary care physician: Tiffanie Amado Consults: 08/08/20 Consult to Physician [CONS] Stat Comment: Consulting Provider: Kuldeep Patel Reason For Exam: Physician to Consult Discharge Meds Discharge Medications Home Medications aspirin 81 mg PO DAILY 05/09/16 [History Confirmed 08/08/20 Last Taken 08/07/20] citalopram 20 mg PO DAILY 05/09/16 [History Confirmed 08/08/20 Last Taken 08/07/20] diltiazem HCl 120 mg PO DAILY 05/09/16 [History Confirmed 08/08/20 Last Taken 08/07/20] methotrexate sodium 25 mg IJ WEEKLY 05/09/16 [History Confirmed 08/08/20 Last Taken 08/07/20] omeprazole 20 mg PO DAILY 05/09/16 [History Confirmed 08/08/20 Last Taken 08/07/20] primidone 100 mg PO HS 05/09/16 [History Confirmed 08/08/20 Last Taken 08/07/20] coenzyme Q10 100 mg capsule 100 mg PO QDAY 07/04/16 [History Confirmed 08/08/20 Last Taken 08/07/20] cyanocobalamin (vitamin B-12) 100 mcg tablet 100 mcg PO QDAY 07/04/16 [History Confirmed 08/08/20 Last Taken 08/07/20] folic acid 1 mg tablet 1 mg PO QDAY 07/04/16 [History Confirmed 08/08/20 Last Taken 08/07/20] grape seed extract [Grape Seed] 1 tab PO QDAY 07/04/16 [History Confirmed 08/08/20 Last Taken 08/07/20] nitroglycerin 0.4 mg sublingual tablet 0.4 mg SUBLINGUAL Q5M PRN 07/04/16 [History Confirmed 08/08/20 Last Taken Unknown] omega-3 fatty acids 1,000 mg capsule 1,000 mg PO QDAY 07/04/16 [History Confirmed 08/08/20 Last Taken 08/07/20] carbidopa-levodopa 1 tab PO TID 02/15/19 [History Confirmed 08/08/20 Last Taken 08/07/20] pramipexole 0.125 mg PO TID 02/15/19 [History Confirmed 08/08/20 Last Taken 08/07/20] trazodone 50 mg PO HS 02/15/19 [History Confirmed 08/08/20 Last Taken 08/06/20] polyethylene glycol 3350 [Miralax] 17 g PO BID #510 g 11/30/19 [Rx Confirmed 08/08/20 Last Taken 08/07/20] COURSE Hospital Course Hospital course: Interval history: History of present illness: Mr. Maria is a pleasant 80 years old male with past medical history significant for Crohn's disease which is well controlled came to emergency room with complaint of abdominal pain for 1 day. Patient pain started yesterday. It was lower abdomen cramping. It was associated with nausea and he vomited once. His last bowel movement was Sunday which is 48 hours ago. Currently he does not pass flatus. Patient does not have nausea. Patient has no previous history of small bowel obstruction, abdominal surgery, toxic megacolon or any complication regarding Crohn's disease. In the emergency room CT scan of abdomen and pelvis was done which showed Chronic Crohn's terminal ileitis /thickening of the wall and plicae circulares folds resulting in partial small bowel obstruction. The patient denies fever chills diarrhea, hematochezia, dizziness chest pain shortness of breath. Patient admitted for further management. 7 Patient is feeling better. No abdominal pain nausea vomiting. No BM yet. He is passing flatus. He is on clear liquids with good tolerance. 7/ Patient had a large bowel movement. Feeling better. And desiring to go home. A/P Narrative: A: #Abdominal pain/nausea/vomitin/2 pSBO #Partial small bowel obstruction: -Abdominal exam is unremarkable. Last BM was 48 hours before admission and currently he passes flatus -CT abdomen/pelvic Chronic Crohn's terminal ileitis/ thickening of wall and plicae circulares folds resulting in partial small bowel obstruction. -Unlikely Crohn's flareup however due to obstruction I started him on IV steroid -Advance diet to regular,. Continue IV fluid, serial abdominal exam and follow labs -If patient tolerates regular diet and have bowel movement can be discharged home likely tomorrow Discharge diagnosis: Partial small bowel obstruction likely from chronic Crohn's nausea vomiting Secondary discharge diagnosis: History of CAD and Parkinson's Time Spent with Patient Time attestation: Total time spent providing and/or coordinating discharge services: Time spent: Greater than 30 minutes EXAM Constitutional Vitals: Temp Pulse Resp BP Pulse Ox 97.6 F 65 20 113/51 94 08/09/20 12:00 08/09/20 12:00 08/09/20 12:00 08/09/20 12:00 08/09/20 12:00 Discharge Data Data Completed and Pending Labs on day of discharge: Labs from last 24 hours 08/09/20 08/09/20 08/08/20 05:11 05:11 15:55 WBC 11.3 H RBC 3.79 L Hgb 11.8 L Hct 38.0 L MCV 100.3 H MCH 31.1 MCHC 31.1 RDW 14.6 H Plt Count 190 MPV 10.2 Neut % (Auto) 92.1 H Lymph % (Auto) 4.2 L Snyder % (Auto) 3.6 Eos % (Auto) 0 Baso % (Auto) 0.1 Lymph # (Auto) 0.48 L Snyder # (Auto) 0.41 Eos # (Auto) 0 Baso # (Auto) 0.01 Absolute Neutrophils 10.43 H Sodium 136 Potassium 4.5 Chloride 106 Carbon Dioxide 21 L Anion Gap 9.0 BUN 15 Creatinine 0.9 GFR Calculation 81 Glucose 140 H Calcium 8.1 L Total Bilirubin 0.5 AST 16 ALT < 5 Alkaline Phosphatase 68 C-Reactive Protein 0.80 Total Protein 5.4 L Albumin 3.5 Globulin 1.9 L Albumin/Globulin Ratio 1.8 Discharge Plan Patient/Caregiver Discharge Instructions Activity: increase activity as tolerated Diet: Regular Diet Prescriptions: Continued nitroglycerin [Nitrostat] 0.4 mg tablet, sublingual 0.4 mg SUBLINGUAL Q5M PRN (Reason: Chest Pain) RF: 0 omega-3 fatty acids [Fish Oil Concentrate] 1,000 mg capsule 1,000 mg PO QDAY RF: 0 grape seed extract 1 tab PO QDAY RF: 0 coenzyme Q10 100 mg capsule 100 mg PO QDAY RF: 0 cyanocobalamin (vitamin B-12) 100 mcg tablet 100 mcg PO QDAY RF: 0 folic acid 1 mg tablet 1 mg PO QDAY RF: 0 primidone 50 MG tablet 100 mg PO HS RF: 0 methotrexate sodium 25 MG/ML solution 25 mg IJ WEEKLY RF: 0 citalopram 20 MG tablet 20 mg PO DAILY RF: 0 omeprazole 20 MG capsule 20 mg PO DAILY RF: 0 aspirin 81 MG tablet,chewable 81 mg PO DAILY RF: 0 diltiazem HCl 120 MG capsule,extended release 24hr 120 mg PO DAILY RF: 0 trazodone 50 MG tablet 50 mg PO HS RF: 0 pramipexole 0.25 MG tablet 0.125 mg PO TID RF: 0 carbidopa-levodopa 1 EACH tablet 1 tab PO TID RF: 0 polyethylene glycol 3350 [Miralax] 17 gram/dose powder 17 g PO BID Qty: 510 RF: 3 Follow Up Plan Follow up with: Tiffanie Amado MD [Primary Care Provider] - Patient Disposition: Home, Self-Care Prognosis: Fair Overall status at discharge: patient is progressing back to baseline Discharge Orders: Discharge Order (Routine); Ordered 08/09/20 Ordered By: Porfirio Santos [facility] Deep Vein Thrombosis/Pulmonary Embolism Present on Admission: No
[2020-08-09] MEDS ORDERED: POLYETHYLENE GLYCOL 3350 17 GM PACKET PO SCH (14:25)
== END 2020-08-09 17:15 | disposition home or self-care (01) | DRG 387 ==
LOC: MEDSUR 01:53 → ED 01:53 → MEDSUR 09:20 → OBSVTOIN 09:20
PROVIDERS: ADMIT Internal Medicine; ATTEND Internal Medicine